=== PATIENT | male | born 1935 | race Caucasian/White ===

== ENCOUNTER 2018-01-22 10:59 | Emergency (ER) | payer MEDICARE, OTHER ==
[2013-03-10 06:00] VITALS: BMI 27.8
[~2018-01-22 10:59] MED LIST: NORCO 10/325 TA1 TA1 PO
== END 2018-01-22 13:48 | disposition home or self-care (01) ==
LOC: D.ER 10:59
DX: M54.30 Sciatica, unspecified side (principal)

== ENCOUNTER 2018-05-20 16:06 | Inpatient (IN) | payer MEDICARE, OTHER ==
[~2018-05-20] VITALS: Ht 177.8 cm; Wt 76.2 kg
--- NOTE | ~2018-05-20 | OP ---
PATIENT NAME: CHACE ADAN MEDICAL RECORD: [id number] :39 LOCATION:D.MS [id number] ADMISSION DATE:05/21/18 SURGEON: JOHNNIE PLUMMER MD DATE OF OPERATION: 05/23/2018 PREOPERATIVE DIAGNOSES: 1. Sigmoid colon mass. 2. Large bowel obstruction secondary to sigmoid colon mass. 3. Atrial fibrillation. 4. Liver mass. POSTOPERATIVE DIAGNOSES: 1. 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 2. Atrial fibrillation. 3. Liver mass, likely metastatic colon cancer. PROCEDURE: Marj's procedure. SURGEON: Johnnie Plummer MD GREEK PROFESSOR: Ivonne Shankar APRN REPORT OF PROCEDURE: The patient's abdomen was prepped and draped in sterile fashion. A cutdown was made in the lower midline of the abdomen. Electrocautery was used to dissect through the subcutaneous tissues and fascia and we entered the abdominal cavity. Once inside, a Gelport was inserted. We used the wound protector and I examined the abdomen digitally and was able to feel the mass, which was adherent to the posterior wall of the abdomen. I did a gentle dissection of the tissues and was able to eventually free this up, but the mass was so adherent that it actually just split the colon in half. The mass encompassed the entire colon circumferentially causing a complete obstruction. The patient had a large amount of stool present proximal to this. The colon was eventually completely freed up and we decided to abort any inclination for a laparoscopic procedure. I went ahead and just extended the lower midline incision up to the inferior aspect of the umbilicus and inserted an Heladio retractor. The colon was transected at the rectosigmoid junction using a 60 blue load SABINO stapler and the mesentery was taken down with sequential clamp and tie technique. The proximal sigmoid colon was then taken down with an electrocautery and upon doing this, there was a large spillage of the contents. This was irrigated out thoroughly until there was good clear return of fluid. The mesentery was taken down with sequential clamp and tie technique and these 2 specimens were sent off for permanent. As we inspected the posterior aspect of the abdomen, we could see there was still tumor present in the retroperitoneal tissues, did gentle dissection of the area to take out any grossly abnormal tissue that was present overlying the patient's inferior vena cava and aorta. Once the mass was completely excised, we inspected the area to assure there was no sign of any active bleeding, which we did not see. We then did further digital examination of the abdomen and can feel there was a large mass in the left lobe of the liver. This was seen on the preoperative CT scan and felt to be metastatic disease. I did not feel any other masses or lesions throughout the abdomen. A Prolene suture was placed on the rectal stump. We then closed up the distal descending colon with a 3-0 silk. An opening was then made in the left lower quadrant just lateral to the umbilicus through the subcutaneous tissues and fascia. Care was taken not to aggravate the muscle and then we eviscerated the distal descending colon through this for OPERATIVE REPORT [id number] CHACE ADAN colostomy. We irrigated out the abdomen one last time. The peritoneum was then closed with a running 2-0 Vicryl. The midline fascia was then closed with a running #1 loop PDS times 2. The skin was then closed with shakira. We then matured the ostomy with multiple interrupted 4-0 Vicryls and dressed it appropriately. COMPLICATIONS: None. CONDITION: Stable. ANESTHESIA: General endotracheal. BLOOD LOSS: 100 mL. TRANSINT:[id number] Voice Confirmation ID: [id number] DOCUMENT ID: [id number] JOHNNIE PLUMMER MD at 2207 CC: [id number] DICTATION DATE: 05/23/18 1608 [place] AND SILVERWARE SALESPERSON: 05/23/18 1623 ADM IN [facility] [address] [place] [address]
[2018-05-20 19:29] LABS: BASOPHILS 0.2 % (0-2); EOSINOPHILS 2.6 % (0-7); HEMATOCRIT 37.5 % (42.0-54.0); HEMOGLOBIN 12.5 g/dL (13.5-17.5); IMMATURE GRANULOCYTES 0.4 % (0-5); LYMPHOCYTES 17.3 % (15-50); MCH 29.9 pg (26.0-34.0); MCHC 33.3 g/dL (31.0-37.0); MCV 89.7 fL (80.0-100.0); MEAN PLATELET VOLUME 9.1 fL (7.4-10.4); NEUTROPHILS 69.5 % (40-80); RBC 4.18 10x6/uL (4.20-6.10); RDW 13.3 % (11.5-14.5); WBC 9.8 10x3/uL (4.8-10.8)
[2018-05-20 19:40] LABS: PLATELET COUNT 359 10x3/uL (130-400)
[2018-05-20 20:11] VITALS: BP 134/65
[2018-05-20 20:12] LABS: ANION GAP 12.4 mmol/L (8-16); BILIRUBIN - TOTAL 0.43 mg/dL (0.2-1.3); CALCIUM 8.7 mg/dL (8.5-10.1); CARBON DIOXIDE 27.7 mmol/L (21.0-32.0); CREATININE - SERUM 1.2 mg/dL (0.6-1.3); POTASSIUM - SERUM 4.1 mmol/L (3.5-5.1); PROTEIN - SERUM 6.9 g/dL (6.4-8.2)
[2018-05-21 03:15] VITALS: BP 129/55; BMI 24.1
[2018-05-21 04:10] VITALS: BP 136/66
[2018-05-21 08:28] VITALS: BP 142/80
[2018-05-21 08:34] LABS: INR 1.01 (0.85-1.17); PROTIME 12.9 SECONDS (11.6-15.0)
[2018-05-21 11:10] VITALS: BP 131/76
[2018-05-21 15:53] VITALS: BP 146/77
[2018-05-21 16:54] LABS: APPEARANCE CLEAR (CLEAR); BILIRUBIN NEGATIVE (NEGATIVE); COLOR YELLOW (YELLOW); GLUCOSE NEGATIVE (NEGATIVE); KETONE MODERATE mg/dL (NEGATIVE); NITRITE NEGATIVE (NEGATIVE); PROTEIN NEGATIVE (NEGATIVE); SPECIFIC GRAVITY 1.015 (1.005-1.020); UROBILINOGEN NORMAL (NORMAL)
[2018-05-21 22:11] VITALS: BP 130/79
[2018-05-22 04:12] VITALS: BP 122/52
[2018-05-22 05:56] LABS: BASOPHILS 0.3 % (0-2); EOSINOPHILS 1.6 % (0-7); HEMATOCRIT 38.7 % (42.0-54.0); HEMOGLOBIN 12.8 g/dL (13.5-17.5); IMMATURE GRANULOCYTES 0.4 % (0-5); LYMPHOCYTES 12.8 % (15-50); MCH 29.4 pg (26.0-34.0); MCHC 33.1 g/dL (31.0-37.0); MEAN PLATELET VOLUME 9.6 fL (7.4-10.4); MONOCYTES 10.2 % (2-11); NEUTROPHILS 74.7 % (40-80); PLATELET COUNT 372 10x3/uL (130-400); RBC 4.35 10x6/uL (4.20-6.10); RDW 13.5 % (11.5-14.5); WBC 9.2 10x3/uL (4.8-10.8)
[2018-05-22 06:30] LABS: ALBUMIN 2.8 g/dL (3.4-5.0); ALKALINE PHOSPHATASE 79 U/L (46-116); ALT (SGPT) 20 U/L (10-68); BILIRUBIN - TOTAL 0.54 mg/dL (0.2-1.3); CALC OSMOLALITY 275 mosm/kg (275-300); CALCIUM 8.1 mg/dL (8.5-10.1); CARBON DIOXIDE 26.9 mmol/L (21.0-32.0); CHLORIDE - SERUM 101 mmol/L (98-107); GLUCOSE 119 mg/dL (74-106); POTASSIUM - SERUM 3.9 mmol/L (3.5-5.1); PROTEIN - SERUM 5.9 g/dL (6.4-8.2); SODIUM 138 mmol/L (136-145); UREA NITROGEN 11 mg/dL (7-18); eGFR NON AFRICAN AMERICAN 76 mL/min (90-120)
[2018-05-22 09:23] VITALS: BP 149/79
[2018-05-22 12:25] VITALS: BP 138/82
[2018-05-22 15:31] VITALS: BMI 24.1
[2018-05-22 17:02] VITALS: BP 157/77
[2018-05-22 21:08] VITALS: BP 150/90
[2018-05-23] VITALS (10 sets, daily range): BP systolic 98–167; BP diastolic 63–79; Ht 177.8 cm; Wt 76.2 kg
[2018-05-23 04:13] LABS: HEMATOCRIT 38.8 % (42.0-54.0); HEMOGLOBIN 13.1 g/dL (13.5-17.5); LYMPHOCYTES 15.2 % (15-50); MCH 29.4 pg (26.0-34.0); MCHC 33.8 g/dL (31.0-37.0); MCV 87.2 fL (80.0-100.0); MEAN PLATELET VOLUME 8.5 fL (7.4-10.4); NEUTROPHILS 74.9 % (40-80); PLATELET COUNT 382 10x3/uL (130-400); RBC 4.45 10x6/uL (4.20-6.10); RDW 13.7 % (11.5-14.5); WBC 7.7 10x3/uL (4.8-10.8)
[2018-05-23 04:26] LABS: ALBUMIN 2.7 g/dL (3.4-5.0); ALKALINE PHOSPHATASE 75 U/L (46-116); ALT (SGPT) 21 U/L (10-68); BILIRUBIN - TOTAL 0.49 mg/dL (0.2-1.3); CALC OSMOLALITY 270 mosm/kg (275-300); CALCIUM 8.3 mg/dL (8.5-10.1); CARBON DIOXIDE 26.5 mmol/L (21.0-32.0); CHLORIDE - SERUM 99 mmol/L (98-107); GLUCOSE 129 mg/dL (74-106); POTASSIUM - SERUM 3.4 mmol/L (3.5-5.1); PROTEIN - SERUM 6.7 g/dL (6.4-8.2); SODIUM 134 mmol/L (136-145); eGFR NON AFRICAN AMERICAN 76 mL/min (90-120)
[2018-05-23 04:29] LABS: UREA NITROGEN 14 mg/dL (7-18)
[2018-05-24 01:00] VITALS: BP 102/66
[2018-05-24 05:04] VITALS: BP 131/88
[2018-05-24 06:21] LABS: BASOPHILS 0 % (0-2); EOSINOPHILS 0 % (0-7); HEMOGLOBIN 11.9 g/dL (13.5-17.5); IMMATURE GRANULOCYTES 0.4 % (0-5); LYMPHOCYTES 5.4 % (15-50); MCH 29.3 pg (26.0-34.0); MCHC 33.1 g/dL (31.0-37.0); MCV 88.7 fL (80.0-100.0); MEAN PLATELET VOLUME 9.4 fL (7.4-10.4); MONOCYTES 5.4 % (2-11); NEUTROPHILS 88.8 % (40-80); PLATELET COUNT 390 10x3/uL (130-400); RBC 4.06 10x6/uL (4.20-6.10); RDW 13.8 % (11.5-14.5)
[2018-05-24 06:22] LABS: WBC 18.5 10x3/uL (4.8-10.8)
[2018-05-24 06:28] LABS: ALBUMIN 2.3 g/dL (3.4-5.0); ANION GAP 11.2 mmol/L (8-16); BILIRUBIN - TOTAL 0.44 mg/dL (0.2-1.3); CALCIUM 8.1 mg/dL (8.5-10.1); CARBON DIOXIDE 26.8 mmol/L (21.0-32.0); CREATININE - SERUM 1.2 mg/dL (0.6-1.3); PROTEIN - SERUM 5.6 g/dL (6.4-8.2)
[2018-05-24 09:30] VITALS: BP 120/61
[2018-05-24 20:00] VITALS: BP 120/63
[2018-05-25 03:58] VITALS: BP 107/53
[2018-05-25 06:08] LABS: BASOPHILS 0.1 % (0-2); EOSINOPHILS 0.9 % (0-7); HEMATOCRIT 30.6 % (42.0-54.0); HEMOGLOBIN 10.1 g/dL (13.5-17.5); IMMATURE GRANULOCYTES 0.5 % (0-5); LYMPHOCYTES 8.3 % (15-50); MCH 29.4 pg (26.0-34.0); MEAN PLATELET VOLUME 9.2 fL (7.4-10.4); MONOCYTES 5.8 % (2-11); NEUTROPHILS 84.4 % (40-80); PLATELET COUNT 328 10x3/uL (130-400); RBC 3.44 10x6/uL (4.20-6.10); RDW 14.1 % (11.5-14.5); WBC 15.3 10x3/uL (4.8-10.8)
[2018-05-25 06:31] LABS: ALKALINE PHOSPHATASE 48 U/L (46-116); ALT (SGPT) 17 U/L (10-68); BILIRUBIN - TOTAL 0.39 mg/dL (0.2-1.3); CALC OSMOLALITY 271 mosm/kg (275-300); CARBON DIOXIDE 26.7 mmol/L (21.0-32.0); CHLORIDE - SERUM 102 mmol/L (98-107); GLUCOSE 101 mg/dL (74-106); POTASSIUM - SERUM 3.7 mmol/L (3.5-5.1); PROTEIN - SERUM 5.2 g/dL (6.4-8.2); SODIUM 135 mmol/L (136-145); UREA NITROGEN 19 mg/dL (7-18); eGFR NON AFRICAN AMERICAN 76 mL/min (90-120)
[2018-05-25 10:08] VITALS: BP 106/46
[2018-05-25 20:00] VITALS: BP 122/75
[2018-05-26 04:41] VITALS: BP 116/62
[2018-05-26 05:21] LABS: BASOPHILS 0.1 % (0-2); EOSINOPHILS 2.1 % (0-7); HEMATOCRIT 30.9 % (42.0-54.0); HEMOGLOBIN 10.1 g/dL (13.5-17.5); IMMATURE GRANULOCYTES 0.4 % (0-5); LYMPHOCYTES 7.6 % (15-50); MCH 29.3 pg (26.0-34.0); MCHC 32.7 g/dL (31.0-37.0); MCV 89.6 fL (80.0-100.0); MEAN PLATELET VOLUME 9.2 fL (7.4-10.4); MONOCYTES 4.6 % (2-11); NEUTROPHILS 85.2 % (40-80); PLATELET COUNT 355 10x3/uL (130-400); RBC 3.45 10x6/uL (4.20-6.10); WBC 14.5 10x3/uL (4.8-10.8)
[2018-05-26 05:24] LABS: ALKALINE PHOSPHATASE 58 U/L (46-116); ALT (SGPT) 17 U/L (10-68); BILIRUBIN - TOTAL 0.31 mg/dL (0.2-1.3); CALC OSMOLALITY 273 mosm/kg (275-300); CALCIUM 7.9 mg/dL (8.5-10.1); CARBON DIOXIDE 28.1 mmol/L (21.0-32.0); CHLORIDE - SERUM 101 mmol/L (98-107); CREATININE - SERUM 0.9 mg/dL (0.6-1.3); GLUCOSE 95 mg/dL (74-106); POTASSIUM - SERUM 3.6 mmol/L (3.5-5.1); PROTEIN - SERUM 4.8 g/dL (6.4-8.2); SODIUM 136 mmol/L (136-145); UREA NITROGEN 19 mg/dL (7-18); eGFR NON AFRICAN AMERICAN 86 mL/min (90-120)
[2018-05-26 08:07] VITALS: BP 126/65
[2018-05-26 12:32] VITALS: BP 116/73
[2018-05-26 16:31] VITALS: BP 108/60
[2018-05-26 23:38] VITALS: BP 116/63
[2018-05-27 05:16] VITALS: BP 103/67
[2018-05-27 08:23] VITALS: BP 128/87
[2018-05-27] MEDS ORDERED: HYDROCODONE-APA1 TAB PO (09:02)
[2018-05-27] MEDS ORDERED: LEVAQUIN750 MG PO (09:03)
[2018-05-27] MEDS ORDERED: FLAGYL500 MG PO (09:03)
== END 2018-05-27 12:20 | disposition home health service (06) | DRG 330 ==
LOC: D.ER 16:06 → D.MS 05-21 00:42
PROVIDERS: Family Medicine; Surgery
PROC: 0DTN0ZZ Resection of Sigmoid Colon, Open Approach (ICD-10-PCS; principal; 2018-05-23 11:30)
PROC: 0D1M0Z4 Bypass Descending Colon to Cutaneous, Open Approach (ICD-10-PCS; 2018-05-23 11:30)
DX: C18.7 Malignant neoplasm of sigmoid colon (principal); C78.7 Secondary malignant neoplasm of liver and intrahepatic bile duct; K59.00 Constipation, unspecified; R63.4 Abnormal weight loss; Z87.891 Personal history of nicotine dependence; I48.91 Unspecified atrial fibrillation

== ENCOUNTER 2018-07-22 05:50 | Inpatient (IN) | payer MEDICARE, OTHER ==
[2018-07-21 09:50] LABS: BASOPHILS 0.3 % (0-2); HEMATOCRIT 39.7 % (42.0-54.0); IMMATURE GRANULOCYTES 0.2 % (0-5); MCH 29.9 pg (26.0-34.0); MCHC 32.7 g/dL (31.0-37.0); MCV 91.3 fL (80.0-100.0); MEAN PLATELET VOLUME 9.5 fL (7.4-10.4); MONOCYTES 11.4 % (2-11); NEUTROPHILS 61.1 % (40-80); RBC 4.35 10x6/uL (4.20-6.10); RDW 15.4 % (11.5-14.5); WBC 6.7 10x3/uL (4.8-10.8)
[2018-07-21 09:51] LABS: PLATELET COUNT 195 10x3/uL (130-400)
[2018-07-21 09:57] LABS: CALC OSMOLALITY 276 mosm/kg (275-300); CALCIUM 8.9 mg/dL (8.5-10.1); CARBON DIOXIDE 28.7 mmol/L (21.0-32.0); CHLORIDE - SERUM 103 mmol/L (98-107); GLUCOSE 99 mg/dL (74-106); POTASSIUM - SERUM 4.4 mmol/L (3.5-5.1); SODIUM 138 mmol/L (136-145); UREA NITROGEN 16 mg/dL (7-18); eGFR NON AFRICAN AMERICAN 76 mL/min (90-120)
[2018-07-21 09:58] LABS: APTT 24.6 SECONDS (22.8-39.4); INR 0.91 (0.85-1.17); PROTIME 11.9 SECONDS (11.6-15.0)
[~2018-07-22] VITALS: Ht 175.3 cm; Wt 79.4 kg
--- NOTE | ~2018-07-22 | MORECARE ---
CASE MANAGEMENT DISCHARGE SUMMARY PATIENT: CHACE ADAN ANUPAMA UNIT: [id number] ADM DATE: 07/22/18 AGE: 83 : 37 SEX: M ROOM/BED: D.2217 AUTHOR: ANNEL FRAZIER PHYSICIAN: REFERRING PHYSICIAN: MARTI PLUMMER MD DATE OF SERVICE: 07/23/18 Discharge Plan Patient Name: CHACE ADAN [facility] [facility] 1935 Planned Disposition: Home with Home Health Anticipated Discharge Date: Discharge Date: Expected LOS: Initial Reviewer: [email or web address] Initial Review Date: 07/22/2018 Generated: 07/23/18 3:18 pm Patient Name: CHACE ADAN Page 14638 at 1418 All edits/amendments must be made on the electronic document DICTATION DATE: 07/23/18 1418 WAITER/WAITRESS CAFETERIA: DESMOND 07/23/18 1418 RPT#: [id number] DC DATE: STATUS: ADM IN [facility] [address] [place] [address] END OF REPORT
--- NOTE | ~2018-07-22 | OP ---
PATIENT NAME: CHACE ADAN MEDICAL RECORD: [id number] :39 LOCATION:D.MS [id number] ADMISSION DATE:07/22/18 SURGEON: JOHNNIE PLUMMER MD DATE OF OPERATION: 07/22/2018 PREOPERATIVE DIAGNOSES: 1. Colostomy. 2. Metastatic colon cancer. 3. Colon cancer metastasized to the liver. POSTOPERATIVE DIAGNOSES: 1. Colostomy. 2. Metastatic colon cancer. 3. Colon cancer metastasized to the liver. PROCEDURES: 1. Left subclavian vein port placement. 2. Fluoroscopic interpretation. 3. Hand-assisted laparoscopic colostomy takedown. 4. Jordy-Cut liver biopsy. SURGEON: Johnnie Plummer MD SEMICONDUCTOR LAB TECHNICIAN: Ivonne Shankar APRN REPORT OF OPERATION: The patient's left chest was prepped and draped in sterile fashion. A needle was used to cannulate the left subclavian vein and a guidewire was advanced with ease. Fluoro was used to note that the wire was in good position in the venous system. A skin incision was made on the left superior lateral chest and a subcutaneous pouch was made over the pectoral fascia. The catheter was tunneled between this and the wire exit site. The port was then sutured to the pectoral fascia using interrupted 4-0 Prolenes times 2. The catheter was cut with a beveled tip at 25 cm and then a dilator trocar device was placed over the wire. The wire and dilator were then removed and the catheter tip was advanced through the trocar with ease. Once the trocar was removed, the catheter tip was noted to be in good position in the right atrial superior vena caval junction. The catheter aspirated nonpulsatile dark blood and flushed easily with heparinized saline. The subcutaneous tissues were reapproximated with interrupted 3-0 Vicryl and the skin was closed with running subcutaneous 5-0 Monocryl. We then accessed the port and flushed it one last time before applying a dressing. At this point, the patient's abdomen was prepped and draped in sterile fashion. A skin incision was made in the lower midline. Electrocautery was used to dissect through the subcutaneous tissues and fascia until we entered the abdominal cavity. A Gelport was inserted with a 5-mm trocar within it. Through this, we were able to insufflate the abdomen and under direct visualization placed a 5-mm trocar in the right lateral abdomen and another in the right lateral inferior abdomen. The patient had some adhesions present in the pelvis. Most of these were just teased down carefully with blunt dissection. The patient did have some dense adhesions of the small bowel to the pelvic wall and these were taken down with sharp dissection. A total of about 15-20 minutes was used on lysis of adhesions. Once we had the adhesions taken down, we could see the rectal stump. There were some mild adhesions there and these were taken down with blunt dissection. At this point, the rectal stump was freely mobile. The Prolene suture, which had been placed at the previous surgery, was easily visualized. We did not see any evidence of any metastatic OPERATIVE REPORT [id number] CHACE ADAN disease in the patient's previous incision/wound bed. At this point, we took down the indwelling colostomy by excising the surrounding tissue using electrocautery. We continued this dissection down all the way into the abdominal cavity until we were able to finally eviscerate the piece of bowel into the abdomen. The distal aspect of the colostomy was transected and sent off for permanent specimen. The bowel was sized and eventually a 29 EEA anvil was inserted. A 2-0 Prolene was used to make a pursestring around the distal descending colon and this was tied down tightly around the anvil. At this point, the multiple dilators were placed through the anus and rectum and finally followed by the 29 EEA stapler. An end-to-end anastomosis was performed under direct visualization. At the conclusion of this, there were noted to be 2 complete rings of tissue present in the stapler and the staple line was tested under water by instilling air through the rectum. There was no sign of a leak at any point. We then oversewed the staple line using lemberted 3-0 silks. The pelvis was then irrigated out thoroughly with normal saline and care was taken to assure there was no sign of any active surgical bleeding. At this point, the fascia of the ostomy site was closed using multiple interrupted 0 Prolenes. We then reinsufflated the abdomen and inspected the liver. The patient had a large mass present on the left lobe of the liver. A small incision was made in the epigastrium and an 18-gauge Jordy-Cut liver biopsy tool was used to get 3 good course of tissue. There was no sign of any bleeding at the conclusion of this. The patient's ports and insufflation were then removed. The midline fascia was closed with running #1 loop PDS times 2. The skin was then closed with shakira. The ostomy site skin was closed with 2-0 Vicryl in a pursestring fashion. The wounds were then dressed appropriately. COMPLICATIONS: None. CONDITION: Stable. ANESTHESIA: General endotracheal. BLOOD LOSS: 200 mL. TRANSINT:[id number] Voice Confirmation ID: [id number] DOCUMENT ID: [id number] JOHNNIE PLUMMER MD at 1219 CC: ULI MORATAYA MD and SHANKAR UP MD [id number] DICTATION DATE: 07/22/18 1109 FLOOR WORKER TRANSFER BAY: 07/22/18 1130 DIS IN 07/25/18 [id number] [place] [address]
--- NOTE | ~2018-07-22 | MORECARE ---
CASE MANAGEMENT DISCHARGE SUMMARY PATIENT: CHACE ADAN ANUPAMA UNIT: [id number] ADM DATE: 07/22/18 AGE: 83 : 37 SEX: M ROOM/BED: D.2217 AUTHOR: FREDDIE,DOC PHYSICIAN: REFERRING PHYSICIAN: MARTI PLUMMER MD DATE OF SERVICE: 07/28/18 Discharge Plan Patient Name: CHACE ADAN Facility: [facility]:[place] : 1935 Planned Disposition: Home with Home Health Anticipated Discharge Date: Discharge Date: 07/25/2018 Expected LOS: 0 Initial Reviewer: [email or web address] Initial Review Date: 07/22/2018 Generated: 07/28/18 10:49 am Comments DCP- Discharge Planning Updated by [email or web address]: Nery Henning on 07/25/18 9:[address] PATIENT DISCHARGING HOME TODAY, IMM SERVED. PATIENT WILL BE GOING HOME WITH [facility]. SPOKE WITH DARYL. CM WILL CONTINUE TO FOLLOW AND ASSIST WITH DC PLANNING NEEDED DCP- Discharge Planning Updated by [email or web address]: Nery Henning on 07/23/18 1:[address] Patient Name: CHACE ADAN Admission Status: Elective Accout number: [id number] Admission Date: 07-22-2018 : 1935 Admission Diagnosis: Attending: MARTI PLUMMER Current LOS: 1 Anticipated DC Date: Planned Disposition: Home with Home Health Primary Insurance: MEDICARE A & B Discharge Planning Comments: CM met with patient to assess discharge planning needs. Patient lives independently at home with his and plans to return there at discharge. He does not use any DME and is current with [facility] and would like to have them when he is discharged. His home is safe to return and his will be driving him home. CM will continue to follow and assist with DC Planning as needed Joist Setter: Nery Henning DCPIA - Discharge Planning Initial Assessment Updated by [email or web address]: Nery Henning on 07/23/18 2:21 pm * Is the patient Alert and Oriented? Yes * How many steps to enter\exit or inside your home? * PCP [facility] * Pharmacy [facility] * Preadmission Environment Home with Family * ADLs Independent * Equipment None * List name and contact numbers for known caregivers / representatives who currently or will assist patient after discharge: MARY BETH () [phone] * Verbal permission to speak to the caregivers and representatives has been obtained from the patient. Yes * Community resources currently utilized Home Health * Please name any agencies selected above. [facility] * Additional services required to return to the preadmission environment? No * Can the patient safely return to the preadmission environment? Yes * Has this patient been hospitalized within the prior 30 days at any hospital? No Coverage Notice Reviewer: [email or web address] Aide Henning Notice Issued Date-Time: 07/25/2018 10:30 Notice Type: IM Discharge Notice Notice Delivered To: Patient Relationship to Patient: Disability Representative Name: Delivery Method: HAND - Hand Delivered Usha Days: Prior Verbal Notification: Recipient Understood Notice: Yes Recipient Signature: Yes Med Rec Note Co-signed by Attending: Coverage Notice Comment: Last DP export: 07/25/18 9:52 a Patient Name: CHACE ADAN Page 98559 at 0949 All edits/amendments must be made on the electronic document DICTATION DATE: 07/28/18948 GEAR REPAIR SUPERVISOR: DESMOND 07/28/18948 RPT#: [id number] DC DATE:07/25/18 STATUS: DIS IN [facility] [address] [place] [address] END OF REPORT
--- NOTE | ~2018-07-22 | MORECARE ---
CASE MANAGEMENT DISCHARGE SUMMARY PATIENT: CHACE ADAN ANUPAMA UNIT: [id number] ADM DATE: 07/22/18 AGE: 83 : 37 SEX: M ROOM/BED: D.2217 AUTHOR: FREDDIE,DOC PHYSICIAN: REFERRING PHYSICIAN: MARTI PLUMMER MD DATE OF SERVICE: 07/23/18 Discharge Plan Patient Name: CHACE ADAN Facility: [facility]:[place] : 1935 Planned Disposition: Home with Home Health Anticipated Discharge Date: Discharge Date: Expected LOS: Initial Reviewer: [email or web address] Initial Review Date: 07/22/2018 Generated: 07/23/18 3:26 pm Comments DCP- Discharge Planning Updated by [email or web address]: Nery Henning on 07/23/18 1:[address] Patient Name: CHACE ADAN Admission Status: Elective Accout number: [id number] Admission Date: 07-22-2018 : 1935 Admission Diagnosis: Attending: MARTI PLUMMER Current LOS: 1 Anticipated DC Date: Planned Disposition: Home with Home Health Primary Insurance: MEDICARE A & B Discharge Planning Comments: CM met with patient to assess discharge planning needs. Patient lives independently at home with his and plans to return there at discharge. He does not use any DME and is current with [facility] and would like to have them when he is discharged. His home is safe to return and his will be driving him home. CM will continue to follow and assist with DC Planning as needed Spanish Tutor: Nery Henning DCPIA - Discharge Planning Initial Assessment Updated by [email or web address]: Nery Henning on 07/23/18 2:21 pm * Is the patient Alert and Oriented? Yes * How many steps to enter\exit or inside your home? * PCP [facility] * Pharmacy [facility] * Preadmission Environment Home with Family * ADLs Independent * Equipment None * List name and contact numbers for known caregivers / representatives who currently or will assist patient after discharge: MARY BETH () [phone] * Verbal permission to speak to the caregivers and representatives has been obtained from the patient. Yes * Community resources currently utilized Home Health * Please name any agencies selected above. [facility] * Additional services required to return to the preadmission environment? No * Can the patient safely return to the preadmission environment? Yes * Has this patient been hospitalized within the prior 30 days at any hospital? No Last DP export: 07/23/18 1:18 p Patient Name: CHACE ADAN Page 18930 at 1426 All edits/amendments must be made on the electronic document DICTATION DATE: 07/23/181425 PRESCHOOL SUBSTITUTE TEACHER: DESMOND 07/23/181425 RPT#: [id number] DC DATE: STATUS: ADM IN [facility] [address] [place] [address] END OF REPORT
--- NOTE | ~2018-07-22 | MORECARE ---
CASE MANAGEMENT DISCHARGE SUMMARY PATIENT: CHACE ADAN ANUPAMA UNIT: [id number] ADM DATE: 07/22/18 AGE: 83 : 37 SEX: M ROOM/BED: D.2217 AUTHOR: FREDDIE,DOC PHYSICIAN: REFERRING PHYSICIAN: MARTI PLUMMER MD DATE OF SERVICE: 07/25/18 Discharge Plan Patient Name: CHACE ADAN Facility: [facility]:[place] : 1935 Planned Disposition: Home with Home Health Anticipated Discharge Date: Discharge Date: Expected LOS: Initial Reviewer: [email or web address] Initial Review Date: 07/22/2018 Generated: 07/25/18 11:37 am Comments DCP- Discharge Planning Updated by [email or web address]: Nery Henning on 07/23/18 1:[address] Patient Name: CHACE ADAN Admission Status: Elective Accout number: [id number] Admission Date: 07-22-2018 : 1935 Admission Diagnosis: Attending: MARTI PLUMMER Current LOS: 1 Anticipated DC Date: Planned Disposition: Home with Home Health Primary Insurance: MEDICARE A & B Discharge Planning Comments: CM met with patient to assess discharge planning needs. Patient lives independently at home with his and plans to return there at discharge. He does not use any DME and is current with [facility] and would like to have them when he is discharged. His home is safe to return and his will be driving him home. CM will continue to follow and assist with DC Planning as needed Farm Loan Inspector: Nery Henning DCPIA - Discharge Planning Initial Assessment Updated by [email or web address]: Nery Henning on 07/23/18 2:21 pm * Is the patient Alert and Oriented? Yes * How many steps to enter\exit or inside your home? * PCP [facility] * Pharmacy [facility] * Preadmission Environment Home with Family * ADLs Independent * Equipment None * List name and contact numbers for known caregivers / representatives who currently or will assist patient after discharge: MARY BETH () [phone] * Verbal permission to speak to the caregivers and representatives has been obtained from the patient. Yes * Community resources currently utilized Home Health * Please name any agencies selected above. [facility] * Additional services required to return to the preadmission environment? No * Can the patient safely return to the preadmission environment? Yes * Has this patient been hospitalized within the prior 30 days at any hospital? No External Providers External Provider: [facility] Next Contact Date: Service Request Date: Service Type: Resolution: Reviewer: Comments: Last DP export: 07/23/18 1:26 p Patient Name: CHACE ADAN Page 64046 at 1037 All edits/amendments must be made on the electronic document DICTATION DATE: 07/25/18 1036 SOLAR PV INSTALLER: DESMOND 07/25/18 1036 RPT#: [id number] DC DATE: STATUS: ADM IN [facility] [address] [place] [address] END OF REPORT
--- NOTE | ~2018-07-22 | MORECARE ---
CASE MANAGEMENT DISCHARGE SUMMARY PATIENT: CHACE ADAN ANUPAMA UNIT: [id number] ADM DATE: 07/22/18 AGE: 83 : 37 SEX: M ROOM/BED: D.2217 AUTHOR: FREDDIE,DOC PHYSICIAN: REFERRING PHYSICIAN: MARTI PLUMMER MD DATE OF SERVICE: 07/25/18 Discharge Plan Patient Name: CHACE ADAN Facility: [facility]:[place] : 1935 Planned Disposition: Home with Home Health Anticipated Discharge Date: Discharge Date: Expected LOS: Initial Reviewer: [email or web address] Initial Review Date: 07/22/2018 Generated: 07/25/18 11:52 am Comments DCP- Discharge Planning Updated by [email or web address]: Nery Henning on 07/25/18 9:[address] PATIENT DISCHARGING HOME TODAY, IMM SERVED. PATIENT WILL BE GOING HOME WITH [facility]. SPOKE WITH DARYL. CM WILL CONTINUE TO FOLLOW AND ASSIST WITH DC PLANNING NEEDED DCP- Discharge Planning Updated by [email or web address]: Nery Henning on 07/23/18 1:[address] Patient Name: CHACE ADAN Admission Status: Elective Accout number: [id number] Admission Date: 07-22-2018 : 1935 Admission Diagnosis: Attending: MARTI PLUMMER Current LOS: 1 Anticipated DC Date: Planned Disposition: Home with Home Health Primary Insurance: MEDICARE A & B Discharge Planning Comments: CM met with patient to assess discharge planning needs. Patient lives independently at home with his and plans to return there at discharge. He does not use any DME and is current with [facility] and would like to have them when he is discharged. His home is safe to return and his will be driving him home. CM will continue to follow and assist with DC Planning as needed Car Barn Laborer: Nery Henning DCPIA - Discharge Planning Initial Assessment Updated by [email or web address]: Nery Henning on 07/23/18 2:21 pm * Is the patient Alert and Oriented? Yes * How many steps to enter\exit or inside your home? * PCP [facility] * Pharmacy [facility] * Preadmission Environment Home with Family * ADLs Independent * Equipment None * List name and contact numbers for known caregivers / representatives who currently or will assist patient after discharge: MARY BETH () [phone] * Verbal permission to speak to the caregivers and representatives has been obtained from the patient. Yes * Community resources currently utilized Home Health * Please name any agencies selected above. [facility] * Additional services required to return to the preadmission environment? No * Can the patient safely return to the preadmission environment? Yes * Has this patient been hospitalized within the prior 30 days at any hospital? No Coverage Notice Reviewer: [email or web address] Aide Henning Notice Issued Date-Time: 07/25/2018 10:30 Notice Type: IM Discharge Notice Notice Delivered To: Patient Relationship to Patient: Galvanizer Zinc Name: Delivery Method: HAND - Hand Delivered Usha Days: Prior Verbal Notification: Recipient Understood Notice: Yes Recipient Signature: Yes Med Rec Note Co-signed by Attending: Coverage Notice Comment: Last DP export: 07/25/18 9:37 a Patient Name: CHACE ADAN Page 65436 at 1052 All edits/amendments must be made on the electronic document DICTATION DATE: 07/25/18 1051 4TH GRADE TEACHER: DESMOND 07/25/18 1051 RPT#: [id number] DC DATE: STATUS: ADM IN [facility] [address] [place] [address] END OF REPORT
[~2018-07-22 05:50] MED LIST changes: +FLAGYL500 MG PO; +HYDROCODONE-APA1 TAB PO; +LEVAQUIN750 MG PO; +OCCUVITE PO
[2018-07-22 06:19] VITALS: BP 141/71
[2018-07-22 14:30] VITALS: BP 149/72
[2018-07-22 14:48] VITALS: BP 149/72; BMI 25.9
[2018-07-22 15:46] VITALS: BP 140/78
[2018-07-22 20:00] VITALS: BP 115/64
[2018-07-23] VITALS: BP 123/68
[2018-07-23 04:00] VITALS: BP 134/73
[2018-07-23 05:57] LABS: BASOPHILS 0.1 % (0-2); EOSINOPHILS 0.3 % (0-7); HEMATOCRIT 38.7 % (42.0-54.0); HEMOGLOBIN 12.5 g/dL (13.5-17.5); IMMATURE GRANULOCYTES 0.2 % (0-5); MCH 29.2 pg (26.0-34.0); MCHC 32.3 g/dL (31.0-37.0); MCV 90.4 fL (80.0-100.0); MONOCYTES 10.5 % (2-11); NEUTROPHILS 78.9 % (40-80); PLATELET COUNT 193 10x3/uL (130-400); RBC 4.28 10x6/uL (4.20-6.10); RDW 15.3 % (11.5-14.5)
[2018-07-23 06:00] LABS: WBC 10.4 10x3/uL (4.8-10.8)
[2018-07-23 06:15] LABS: CALC OSMOLALITY 271 mosm/kg (275-300); CALCIUM 8.2 mg/dL (8.5-10.1); CARBON DIOXIDE 26.5 mmol/L (21.0-32.0); CHLORIDE - SERUM 103 mmol/L (98-107); CREATININE - SERUM 0.9 mg/dL (0.6-1.3); GLUCOSE 112 mg/dL (74-106); POTASSIUM - SERUM 3.9 mmol/L (3.5-5.1); SODIUM 136 mmol/L (136-145); eGFR NON AFRICAN AMERICAN 86 mL/min (90-120)
[2018-07-23 06:19] LABS: UREA NITROGEN 10 mg/dL (7-18)
[2018-07-23 09:06] VITALS: BP 145/78
[2018-07-23 13:14] VITALS: BP 118/58
[2018-07-23 13:49] VITALS: Ht 175.3 cm; Wt 79.4 kg
[2018-07-23 21:32] VITALS: BP 130/58
[2018-07-24 04:57] LABS: BASOPHILS 0.1 % (0-2); EOSINOPHILS 2.6 % (0-7); HEMATOCRIT 32.1 % (42.0-54.0); HEMOGLOBIN 10.6 g/dL (13.5-17.5); IMMATURE GRANULOCYTES 0.3 % (0-5); LYMPHOCYTES 16.4 % (15-50); MCH 30.4 pg (26.0-34.0); MEAN PLATELET VOLUME 9.9 fL (7.4-10.4); MONOCYTES 12.8 % (2-11); NEUTROPHILS 67.8 % (40-80); PLATELET COUNT 170 10x3/uL (130-400); RBC 3.49 10x6/uL (4.20-6.10); RDW 15.7 % (11.5-14.5); WBC 7.6 10x3/uL (4.8-10.8)
[2018-07-24 05:08] LABS: CALC OSMOLALITY 276 mosm/kg (275-300); CALCIUM 7.8 mg/dL (8.5-10.1); CHLORIDE - SERUM 104 mmol/L (98-107); CREATININE - SERUM 0.9 mg/dL (0.6-1.3); GLUCOSE 79 mg/dL (74-106); POTASSIUM - SERUM 3.8 mmol/L (3.5-5.1); SODIUM 139 mmol/L (136-145); eGFR NON AFRICAN AMERICAN 86 mL/min (90-120)
[2018-07-24 05:19] VITALS: BP 141/62
[2018-07-24 05:24] LABS: UREA NITROGEN 13 mg/dL (7-18)
[2018-07-24 09:05] VITALS: BP 119/67
[2018-07-24 12:11] VITALS: BP 142/78
[2018-07-24 16:13] VITALS: BP 132/78
[2018-07-24 16:19] VITALS: BP 141/69
[2018-07-24 19:47] VITALS: BP 125/57
[2018-07-25 04:56] VITALS: BP 122/66
[2018-07-25 06:49] LABS: BASOPHILS 0.2 % (0-2); EOSINOPHILS 4.3 % (0-7); HEMATOCRIT 33.1 % (42.0-54.0); HEMOGLOBIN 10.6 g/dL (13.5-17.5); IMMATURE GRANULOCYTES 0.2 % (0-5); LYMPHOCYTES 10.9 % (15-50); MCV 90.4 fL (80.0-100.0); MEAN PLATELET VOLUME 10.4 fL (7.4-10.4); MONOCYTES 10.1 % (2-11); NEUTROPHILS 74.3 % (40-80); PLATELET COUNT 188 10x3/uL (130-400); RBC 3.66 10x6/uL (4.20-6.10); RDW 15.4 % (11.5-14.5); WBC 8.5 10x3/uL (4.8-10.8)
[2018-07-25 07:18] LABS: CALC OSMOLALITY 277 mosm/kg (275-300); CALCIUM 8.6 mg/dL (8.5-10.1); CARBON DIOXIDE 27.2 mmol/L (21.0-32.0); CHLORIDE - SERUM 104 mmol/L (98-107); CREATININE - SERUM 0.8 mg/dL (0.6-1.3); GLUCOSE 90 mg/dL (74-106); POTASSIUM - SERUM 3.6 mmol/L (3.5-5.1); SODIUM 139 mmol/L (136-145); UREA NITROGEN 12 mg/dL (7-18); eGFR NON AFRICAN AMERICAN > 90 mL/min (90-120)
[2018-07-25 08:18] VITALS: BP 150/63
[2018-07-25] MEDS ORDERED: NORCO-10 PO (10:17)
== END 2018-07-25 12:40 | disposition home health service (06) | DRG 333 ==
LOC: D.OPS 05:50 → D.PAN 10:35 → D.OPS 11:00 → D.PAN 11:30 → D.MS 13:30 → D.OPS 13:31 → D.MS 13:32
PROVIDERS: Anesthesiology; Surgery
PROC: 0DBP0ZZ Excision of Rectum, Open Approach (ICD-10-PCS; principal; 2018-07-22 08:00)
PROC: 0FB04ZX Excision of Liver, Percutaneous Endoscopic Approach, Diagnostic (ICD-10-PCS; 2018-07-22 08:00)
DX: Z43.3 Encounter for attention to colostomy (principal); C18.9 Malignant neoplasm of colon, unspecified; C78.7 Secondary malignant neoplasm of liver and intrahepatic bile duct

== ENCOUNTER → 2019-05-11 08:14 | Outpatient (CLI) | payer MEDICARE, OTHER ==
[2018-07-23 13:49] VITALS: BMI 25.8
[~2019-05-11 08:14] MED LIST changes: +NORCO-10 PO
--- NOTE | 2019-05-12 11:10 | EC ---
PATIENT:CHACE ADAN DATE OF SERVICE: 05/11/19 SEX: M MEDICAL RECORD: [id number] DATE OF : 39 LOCATION:[facility] AGE OF PATIENT: 84 ADMISSION DATE: 05/11/19 REFERRING PHYSICIAN: INTERPRETING PHYSICIAN: CHELO CHEW MD ECHOCARDIOGRAM REPORT ECHO CHARGES 4 ECHO COMPLETE Date: 05/11/19 CLINICAL DIAGNOSIS: CHEMOTHERAPY ECHOCARDIOGRAPHIC MEASUREMENTS (adult normal given) AC root (d.<3.7cm) 3.3 cm LV Septum d (<1.2 cm> 0.9 cm Valve Excursion 1.5 cm LV Septum (systole) 1.3 cm Left Atria (s.<4.0cm> 3.7 cm LVPW d(<1.2cm) 1.1 cm RV (d.<2.3cm) 2.4 cm LVPW (sytole) 1.7 cm LV diastole(<5.6CM) 6.1 cm MV E-F(>70mm/sec) cm LV systole 4.3 cm LVOT Diameter 2.2 cm MV exc.(>10mm) cm Est.ejection fraction (50-75%) % DOPPLER: LVIT cm/sec A 57.0 cm/sec E 46.0 cm/sec LA cm/sec RVSP 43.0 mmHg LVOT 66.0 cm/sec AOP1/2T m/s Asc. Ao 137 cm/sec RVOT 57.0 cm/sec RA cm/sec PA 118 cm/sec AV Gradient Peak 7.6 mmHg AV Mean 3.9 mmHg AV Area 1.5 cm MV Gradient Peak 3.3 mmHg MV Mean 0.89 mmHg MV Area cm COMMENTS: Singer Songwriter: Romero PERKINSOE Diesel Powerplant Supervisor: 1 Dr. Chew TAPE# PACS Pericardial Effusion N DATE OF SERVICE: 05/11/2019 PROCEDURE: Echocardiogram. FINDINGS: 1. Left ventricular chamber size is mildly dilated. Left ventricular systolic function is mildly reduced at 45%. 2. Left atrium is within normal limits at 3.7 cm. Right atrium and right ventricular chamber sizes are as well upper limits of normal. 3. Valvular structures have normal structure and motion. ECHOCARDIOGRAM REPORT [id number] CHACE ADAN 4. Doppler interrogation reveals moderate mitral regurgitation, moderate tricuspid regurgitation, no other valvular insufficiency or stenosis. Pulmonary systolic pressure is estimated 43 mmHg. 5. No evidence of pericardial effusion or left ventricular thrombus. TRANSINT:[id number] Voice Confirmation ID: [id number] DOCUMENT ID: [id number] CHELO CHEW MD at 1110 CC: [id number] DICTATION DATE: 05/11/19 1137 PIE BAKERY LABORER: 05/11/19 1149 DEP CLI 05/11/19 [place] [id number] [place] [id number]
== END | disposition home or self-care (01) ==
LOC: D.ECHO 08:14
PROVIDERS: ATTEND Internal Medicine Hematology & Oncology
DX: C18.7 Malignant neoplasm of sigmoid colon (principal); C78.7 Secondary malignant neoplasm of liver and intrahepatic bile duct; Z51.11 Encounter for antineoplastic chemotherapy

== ENCOUNTER 2019-10-16 12:30 | Observation (INO) | payer MEDICARE, OTHER ==
[~2019-10-16] VITALS: Ht 175.3 cm; Wt 77.3 kg
[2019-10-16 13:42] LABS: BASOPHILS 0.1 % (0-2); EOSINOPHILS 1.5 % (0-7); HEMATOCRIT 44.3 % (42.0-54.0); HEMOGLOBIN 14.7 g/dL (13.5-17.5); IMMATURE GRANULOCYTES 0.3 % (0-5); LYMPHOCYTES 16.3 % (15-50); MCH 33.1 pg (26.0-34.0); MCHC 33.2 g/dL (31.0-37.0); MCV 99.8 fL (80.0-100.0); MONOCYTES 10.7 % (2-11); NEUTROPHILS 71.1 % (40-80); PLATELET COUNT 204 10x3/uL (130-400); RBC 4.44 10x6/uL (4.20-6.10); RDW 13.1 % (11.5-14.5); WBC 7.5 10x3/uL (4.8-10.8)
[2019-10-16 13:48] LABS: ANION GAP 11.9 mmol/L (8-16); CALCIUM 8.9 mg/dL (8.5-10.1); CARBON DIOXIDE 31.1 mmol/L (21.0-32.0); CREATININE - SERUM 1.2 mg/dL (0.6-1.3)
[2019-10-16 13:53] LABS: ALBUMIN 3.8 g/dL (3.4-5.0); BILIRUBIN - TOTAL 0.44 mg/dL (0.2-1.3); PROTEIN - SERUM 7.1 g/dL (6.4-8.2)
--- NOTE | 2019-10-16 15:04 | NUR ---
URINE TO LAB
[2019-10-16 15:21] LABS: APPEARANCE CLEAR (CLEAR); COLOR YELLOW (YELLOW); SPECIFIC GRAVITY 1.015 (1.005-1.020)
[2019-10-16 15:22] LABS: BILIRUBIN NEGATIVE (NEGATIVE); GLUCOSE NEGATIVE (NEGATIVE); KETONE NEGATIVE (NEGATIVE); NITRITE NEGATIVE (NEGATIVE); PROTEIN TRACE mg/dL (NEGATIVE); UROBILINOGEN NORMAL (NORMAL)
--- NOTE | 2019-10-16 15:23 | NUR ---
PT NEW ROOM NOT READY YET
--- NOTE | 2019-10-16 16:00 | NUR ---
ALERT AND ORIENTED X4 AND UP AND AMBULATING WITH STEADY GAIT. PATINET COMPLAINS OF LOWER BACK PAIN AND REQUIRES FREQUENT REPOSITIONING PER SELF IV INFUSING TO LEFT HAND AT PRESCRIBED RATE. FENTANYL PATCH INTACT. HRRR AND LUNGS CTA WITH ABDOMEN SOFT WITH BS NOTED. ENCOURAGED TO USE CALL LIGHT FOR ASSIST.
[2019-10-16 16:39] VITALS: BP 134/87; Ht 175.3 cm; Wt 77.3 kg
--- NOTE | 2019-10-16 19:10 | NUR ---
PATIENT RESTING IN BED WITH EYES OPEN. NO ACUTE S/S OF DISTRESS. NO C/O AT THIS TIME. PATIENT HAS L HAND NORMAL SALINE @ 100 ML/HR. IV IS PATENT WITHOUT REDNESS, SWELLING, OR TENDERNESS. PATIENT IS RESTLESS BECUASE OF THE BACK PAIN HE WAS ADMITTED FOR. PATIENT CLAIMS THAT NOTHING HAS BEEN HELPING AND THAT HE JUST WANTED TO BE ABLE TO SLEEP. PATIENT HAS FENTYL PATCH ON L SHOULDER. PATIENT GIVEN ROBAXIL AND RESTORIL BEFORE BED. CALL LIGHT IN PLACE. WILL CONTINUE TO MONITOR.
[2019-10-16 20:00] VITALS: BP 153/87
[2019-10-17] VITALS: BP 127/71
[2019-10-17 04:00] VITALS: BP 132/88
--- NOTE | 2019-10-17 04:21 | NUR ---
PATIENT HAS GOTTEN INCREASINGLY FRUSTRATED THROUGH THE NIGHT. "WHAT'S THE POINT OF THIS. WHAT ARE WE GLEANING. I COULD HAVE JUST STAYED AT HOME AND GOTTEN THE SAME RESULTS." I HAVE GIVEN ROBAXIN. BUT PATIENT HAS REFUSED THE NORCO.
[2019-10-17 05:50] LABS: BASOPHILS 0.3 % (0-2); EOSINOPHILS 3.5 % (0-7); HEMATOCRIT 40.1 % (42.0-54.0); HEMOGLOBIN 13.1 g/dL (13.5-17.5); IMMATURE GRANULOCYTES 0.2 % (0-5); MCH 32.7 pg (26.0-34.0); MCHC 32.7 g/dL (31.0-37.0); MEAN PLATELET VOLUME 9.7 fL (7.4-10.4); MONOCYTES 9.3 % (2-11); NEUTROPHILS 62.7 % (40-80); PLATELET COUNT 179 10x3/uL (130-400); RBC 4.01 10x6/uL (4.20-6.10); RDW 13.1 % (11.5-14.5); WBC 6.5 10x3/uL (4.8-10.8)
[2019-10-17 06:16] LABS: BILIRUBIN - TOTAL 0.36 mg/dL (0.2-1.3); CREATININE - SERUM 1.1 mg/dL (0.6-1.3); PROTEIN - SERUM 5.8 g/dL (6.4-8.2)
--- NOTE | 2019-10-17 06:34 | NUR ---
PATIENT WANTS TO GO AMA, BUT DOESN'T LIKE THE IDEA OF HAVING TO "PAY FOR THINGS THAT DIDN'T WORK." PATIENT ALSO SAID, "THIS WAS A WASTE OF TIME. I COULD HAVE BEEN MISERABLE AT HOME. NOTHING HELPED OVER NIGHT SO WHAT WAS THE POINT OF ALL THIS." I TOLD THE PATIENT THAT THE DOCTOR MIGHT NOT COME SO SEE HIM TODAY BECAUSE IT WAS A SATURDAY AND THAT THE MUSIC SUPERVISOR MIGHT COME BY BUT THERE WAS NO GUARANTEE. CALL LIGHT IN PLACE. WILL CONTINUE TO MONITOR.
--- NOTE | 2019-10-17 08:22 | NUR ---
ALERT AND ORIENTED X4. STATES FEELS BETTER WITH DURAGESIC PATCH AND ROBAXIN FOR LOWER BACK PAIN MANAGEMENT. GOOD ROM OF EXT. X4. HRRR AND LUNGS CTA. IVF INFUSING AT PRESCRIBWED RATE AND ENCOURAGED TO USE CALL LIGHT FOR ASSSIT.
[2019-10-17 08:44] VITALS: BP 130/91
[2019-10-17] MEDS ORDERED: GABAPENTIN100 MG PO (09:31)
[2019-10-17] MEDS ORDERED: ROBAXIN PO (09:32)
[2019-10-17] MEDS ORDERED: MIRALAX17 GM PO (09:32)
[2019-10-17] MEDS ORDERED: Duragesic TRANSDERM (09:32)
--- NOTE | 2019-10-17 12:20 | NUR ---
IV DISCONTINUED AND VERBALIZED UNDERSTANDING OF DISCHARGE INSTRUCTIONS. STABLE AT TIME OF DEPARTURE WITH RX X2 IN HAND FOR DURAGESIC AND ROBAXIN.
== END 2019-10-17 12:20 | disposition home or self-care (01) ==
LOC: D.ER 12:30 → OBSVTIME 13:27 → D.MS 13:27
PROVIDERS: Family Medicine; ADMIT Internal Medicine Nephrology; ATTEND Internal Medicine Nephrology
DX: M48.061 Spinal stenosis, lumbar region without neurogenic claudication (principal); G62.9 Polyneuropathy, unspecified; I50.40 Unspecified combined systolic (congestive) and diastolic (congestive) heart failure; M51.36 Other intervertebral disc degeneration, lumbar region; C18.9 Malignant neoplasm of colon, unspecified; C78.7 Secondary malignant neoplasm of liver and intrahepatic bile duct

== ENCOUNTER 2019-11-05 12:37 | Inpatient (IN) | payer MEDICARE, OTHER ==
[~2019-11-05] VITALS: Ht 175.3 cm; Wt 71.2 kg
--- NOTE | ~2019-11-05 | DS ---
PATIENT:CHACE ADAN :39 MEDICAL RECORD: [id number] DISCHARGE SUMMARY ADMISSION DATE: 11/05/19 DISCHARGE DATE: 11/11/19 DATE OF ADMISSION: 11/05/2019. DATE OF DISCHARGE: 11/11/2019. ADMISSION DIAGNOSES: 1. Recurrent small-bowel obstruction. 2. 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 3. Left hydronephrosis. DISCHARGE DIAGNOSES: 1. Recurrent small-bowel obstruction. 2. 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 3. Left hydronephrosis. 4. Multiple mesenteric mets. SURGERY: Exploratory laparotomy with small bowel resection times 2 and a left ureteral stent placement on 11/06/2019. CONSULTATIONS: Urology with Dr. Ceballos. REPORT OF HOSPITALIZATION: The patient was admitted to the hospital through the ER with findings of a recurrent small-bowel obstruction. The patient has been admitted to the hospital just a couple of weeks prior. This was treated conservatively, but he came back in with similar symptoms and a CT scan showing obstruction with a transition zone near the pelvic inlet. He also had worsening left hydronephrosis with obstruction near the pelvic inlet. Urology was consulted and he was admitted to the hospital where he was set up for surgery the following morning for the laparoscopy with ureteral stent placement. The ureteral stent was eventually placed by Dr. Ceballos at the time of surgery and what was planned as a laparoscopic exploration ended up being an open exploration because the patient had multiple areas of metastatic disease throughout the abdominal cavity causing adhesions and blockages. I eventually had to take out a large section of small bowel that had multiple areas of metastatic disease causing multiple stenoses and obstructions to the bowel. Another small section of bowel was taken towards the terminal ileum with another area of metastatic disease. There was metastatic disease near the old ostomy site and his midline incision and just randomly throughout the abdominal cavity including most of the posterior wall of the abdomen. The patient also had a tight area of disease versus anastomotic stenosis at the sigmoid colon where he had had a previous Marj's procedure and colostomy takedown. The patient was not prepped for a colon resection and I knew that the patient was not interested in having a colostomy, so we just freed up some of these adhesions and left it in place. Postoperatively, the patient actually did fairly well and eventually got back to having bowel function including flatus, but no bowel movements. He was tolerating a diet. His incisions appear to be healing appropriately with no signs of infection. His path report came back and it showed adenocarcinoma consistent with metastatic disease in all the segments that were removed. He was then set up for discharge home at that point on regular diet. DISCHARGE INSTRUCTIONS: Return to clinic or call with any questions or concerns, fevers, chills, nausea, vomiting or worsening abdominal pain. DISCHARGE SUMMARY REPORT [id number] CHACE ADAN ACTIVITIES: No heavy lifting or straining for 6 weeks postoperatively. FOLLOWUP: In clinic with me in 1 week. TRANSINT:[id number] Voice Confirmation ID: [id number] DOCUMENT ID: [id number] MARTI PLUMMER MD CC: [id number] DICTATION DATE: 11/17/19 1355 MEN'S GOLF COACH: 11/18/19 0840 DIS IN 11/11/19 [place] [id number] [place] [address]
[~2019-11-05 12:37] MED LIST changes: +Duragesic TRANSDERM; +GABAPENTIN100 MG PO; +MIRALAX17 GM PO; +PERCOCET 10-321 EAC1 PO; +ROBAXIN PO
[2019-11-05] MEDS ORDERED: OXYCODONE HCL E20 MG PO (16:00)
--- NOTE | 2019-11-05 16:00 | NUR ---
TO ROOM 2217 FROM ER VIA WHEELCHAIR. ORIENTATION TO ROOM WITH PATIENT AND .CALL LIGHT IN REACH
[2019-11-05] MEDS ORDERED: OXYCODONE HCL5 M1 PO (16:02)
[2019-11-05] MEDS ORDERED: VALIUM5 MG PO (16:03)
[2019-11-05 16:22] VITALS: BP 133/91; BMI 23.2
[2019-11-05 17:19] VITALS: BP 133/91
[2019-11-05 17:59] LABS: BASOPHILS 0.2 % (0-2); EOSINOPHILS 0.5 % (0-7); HEMATOCRIT 44.6 % (42.0-54.0); HEMOGLOBIN 14.9 g/dL (13.5-17.5); IMMATURE GRANULOCYTES 0.3 % (0-5); LYMPHOCYTES 11.9 % (15-50); MCH 32.5 pg (26.0-34.0); MCHC 33.4 g/dL (31.0-37.0); MCV 97.4 fL (80.0-100.0); MEAN PLATELET VOLUME 9.8 fL (7.4-10.4); MONOCYTES 9.8 % (2-11); NEUTROPHILS 77.3 % (40-80); PLATELET COUNT 250 10x3/uL (130-400); RBC 4.58 10x6/uL (4.20-6.10); WBC 10.9 10x3/uL (4.8-10.8)
[2019-11-05 18:50] LABS: ALBUMIN 3.7 g/dL (3.4-5.0); ANION GAP 11.1 mmol/L (8-16); BILIRUBIN - TOTAL 0.45 mg/dL (0.2-1.3); CALCIUM 8.9 mg/dL (8.5-10.1); CARBON DIOXIDE 33.1 mmol/L (21.0-32.0); CREATININE - SERUM 1.4 mg/dL (0.6-1.3); POTASSIUM - SERUM 4.2 mmol/L (3.5-5.1); PROTEIN - SERUM 6.7 g/dL (6.4-8.2)
[2019-11-05 20:00] VITALS: BP 116/86
--- NOTE | 2019-11-05 22:00 | NUR ---
A&O X 4 IN ROOM. AMBULATES INDEPENDENTLY. CONSENTS SIGNED. REPORTS PROCESS SUPERVISOR ONLY CONTROLS SOME PAIN, BUT DENIES NEED FOR BOLUS.
[2019-11-06] VITALS (7 sets, daily range): BP systolic 127–191; BP diastolic 53–85; Ht 175.3 cm; Wt 71.2 kg
--- NOTE | 2019-11-06 08:02 | NUR ---
ALERT AND ORIENTED. LUNGS CLEAR BILATERALLY. HEART SOUNDS S1 AND S2 HEARD IN ALL LEIVA. BOWEL SOUNDS HYPOACTIVE X 4. SKIN INTACT WITHOUT REDNESS. IV TO RFA PATENT WITHOUT REDNESS. PREOP MEDICATIONS GIVEN PER ORDER. DENIES NEEDS. AT BEDSIDE. BED LOW. CALL [place] AND PERSONAL ITEMS IN REACH. WILL CONTINUE TO MONITOR.
--- NOTE | 2019-11-06 13:00 | NUR ---
PATIENT STILL IN SURGERY.
--- NOTE | 2019-11-06 14:32 | NUR ---
PATIENT RETURNED FROM PROCEDURE. POST OP VITALS STABLE. DRAINAGE MARKED ON ABD INCISION. HOOKED BACK TO EDUCATION DEAN. ICE CHIPS AND MOUTH SWABS GIVEN. WILL CONTINUE TO MONITOR.
--- NOTE | 2019-11-06 15:00 | OP ---
PATIENT NAME: CHACE ADAN MEDICAL RECORD: [id number] :37 LOCATION:[id number] ADMISSION DATE:11/05/19 SURGEON: GEO NOONAN MD DATE OF OPERATION: 11/05/2019 SURGEON: Geo Noonan MD ANESTHESIA: General anesthesia by Marva Ha CRNA. DIAGNOSES: Metastatic sigmoid colon cancer, small-bowel obstruction, left hydronephrosis. PROCEDURE: Cystoscopy, left retrograde pyelogram, left ureteral stent insertion 6-Sudanese x 26 cm without string attached. FINDINGS: On cystoscopy, nonobstructive prostate, no bladder tumors. Single ureteral orifices bilaterally. Retrograde pyelogram shows a tortuous ureter with almost complete occlusion at the L5 vertebral level. There is severe hydroureteronephrosis proximal to the obstruction site. ESTIMATED BLOOD LOSS: None. CLINICAL HISTORY: This is an 84-year-old male, who initially presented with bowel obstruction due to a sigmoid colon cancer. This was resected, but he was found to have metastatic lymph nodes and now he has known metastatic nodules in the liver. He has been treated with chemotherapy. He has had recurrent episodes of small-bowel obstruction for the past 2 weeks. He comes in to the hospital again with severe abdominal pain. CT scan shows a small-bowel obstruction. It also shows left hydroureteronephrosis, which is new. Dr. Trevino is going to perform an exploratory laparoscopy this morning. At the same time, I will be inserting a left ureteral stent to relieve the obstruction. The patient is already under general anesthesia and he has been given his preoperative antibiotics. DESCRIPTION OF PROCEDURE: He was placed into lithotomy position and prepped and draped. Procurement Coordinator fluoroscopy revealed no radiodense stones. Going into the bladder, cystoscopic findings are as outlined above. I inserted an open-ended 5-Sudanese ureteral catheter. A retrograde pyelogram was obtained. There was virtually complete occlusion of the ureter at the L5 level. The very faint amount of contrast managed to get past showed severe hydroureteronephrosis. I then inserted a Sensor wire and at the level of the obstruction. The sensor wire could not pass. I then tried a curved Glidewire and this only manage to deflect itself back 180 degrees at the site of obstruction. Finally, I tried a straight Glidewire and this managed to get through the obstruction site. Over the wire, we inserted a 6-Sudanese x 26 cm ureteral stent. Once this was in correct position, the wire was withdrawn entirely. The distal end of the stent was pushed into the bladder using a pusher. Dr. Trevino will proceed with his surgery. TRANSINT:[id number] Voice Confirmation ID: [id number] DOCUMENT ID: [id number] OPERATIVE REPORT [id number] CHACE ADAN, GEO Lowe MD at 1500 CC: [id number] DICTATION DATE: 11/06/1955 MANAGER SHIP: 11/06/19 1456 ADM IN [facility] [address] [place] [address]
--- NOTE | 2019-11-06 17:06 | NUR ---
SPOKE WITH DR RODRIGUEZ WHO STATES OK TO GIVE PATIENT ONE TIME DOSE ATIVAN 1MG IV NOW. PATIENT VERY UPSET AND RESTLESS.
--- NOTE | 2019-11-07 03:00 | NUR ---
PT WOKE UP CONFUSED. GOT OUT OF BED TO GO TO BATHROOM. PULLED OUT RIGHT FOREARM IV, CATHETER INTACT AND DISCONNECTED NGT. PUT PT BACK IN BED AND CHANGED GOWN. FLUSHED LEF FOREARM IV, IS PATENT. RESUMED IV FLUIDS AND MEDICAL EDITOR. NO OTHER NEEDS. WILL CONTINUE TO MONITOR.
[2019-11-07 04:00] VITALS: BP 135/79
--- NOTE | 2019-11-07 04:00 | NUR ---
PT CONFUSED. TRIED TO GET UP AGAIN TO "PEE" GETTING [place]STON CATHETER AND IV WRAPPED AROUND HIM. STRAIGHTENED OUT LINES AND PULLED PT UP IN BED. PLACED ROMEL ALARM ON BED. NO OTHER NEEDS. BED LOW. CALL LIGHT IN REACH.
[2019-11-07 06:32] LABS: BASOPHILS 0 % (0-2); EOSINOPHILS 0 % (0-7); HEMATOCRIT 36.4 % (42.0-54.0); IMMATURE GRANULOCYTES 0.3 % (0-5); LYMPHOCYTES 3.8 % (15-50); MCH 32.1 pg (26.0-34.0); MCV 97.3 fL (80.0-100.0); MEAN PLATELET VOLUME 9.7 fL (7.4-10.4); MONOCYTES 5.2 % (2-11); NEUTROPHILS 90.7 % (40-80); PLATELET COUNT 208 10x3/uL (130-400); RBC 3.74 10x6/uL (4.20-6.10); RDW 13.1 % (11.5-14.5); WBC 11.8 10x3/uL (4.8-10.8)
[2019-11-07 06:35] LABS: ANION GAP 12.8 mmol/L (8-16); CALCIUM 7.6 mg/dL (8.5-10.1); CARBON DIOXIDE 23.5 mmol/L (21.0-32.0); CREATININE - SERUM 1.4 mg/dL (0.6-1.3); POTASSIUM - SERUM 4.3 mmol/L (3.5-5.1)
--- NOTE | 2019-11-07 08:00 | NUR ---
ASSESSMENT PER FLOW SHEET. PT IS WITHOUT DISTRESS.CALL LIGHT IN REACH
[2019-11-07 08:28] VITALS: BP 131/69
--- NOTE | 2019-11-07 13:45 | NUR ---
PT REPORTS LIGHT BROWN LIQUID STOOL. LAURA WATER REUSE PROGRAM MANAGER OR MYSELF HELPED HIM TO BATHROOM. INSTRUCTED PATIENT TO CALL FOR ASSIST.
[2019-11-07 14:07] VITALS: BP 141/84
[2019-11-07 16:19] VITALS: BP 135/71
--- NOTE | 2019-11-07 17:43 | NUR ---
REMAINS WITHOUT NEEDS,WITHOUT CHANGE. CONFUSION AT TIMES. ROMEL MAT REMAINS IN PLACE AND DOOR OPEN.EATING ANOTHER ICE POP. HAS HAD NO NAUSEA. 200 CC OF DRAINAGE IN NGT CANISTER FOR TODAY. PAIN SOMEWHAT CONTROLLED WITH RADIO MECHANIC HELPER. WENT HOME FOR DAY. CONT PLAN OF CARE
[2019-11-07 23:31] VITALS: BP 150/80
[2019-11-08 03:48] VITALS: BP 146/57
[2019-11-08 04:00] VITALS: BP 140/70
--- NOTE | 2019-11-08 05:30 | NUR ---
PT CONFUSED. KEEPS CLIMBING OUT OF BED. SAYS HE HAS TO "PEE". HAVE REORIENTED SEVERAL TIMES AND PUT BACK IN BED. HAVE EXPLAINED HOUSTON CATHETER REPEATEDLY. PT STILL WANTS TO GET UP AND TRY TO VOID. PT PULLED CATHETER SO TIGHT, THERE WAS A LITTLE BLOOD IN HIS URINE THEN CLEARD UP. PT ALSO JUST PULLED OUT NG TUBE. PT STATES HE IS GOING HOME TODAY ANYWAY.
[2019-11-08 06:52] LABS: BASOPHILS 0.1 % (0-2); EOSINOPHILS 0.2 % (0-7); HEMATOCRIT 36.7 % (42.0-54.0); HEMOGLOBIN 12.3 g/dL (13.5-17.5); IMMATURE GRANULOCYTES 0.4 % (0-5); LYMPHOCYTES 5.7 % (15-50); MCH 32.3 pg (26.0-34.0); MCHC 33.5 g/dL (31.0-37.0); MCV 96.3 fL (80.0-100.0); MEAN PLATELET VOLUME 9.8 fL (7.4-10.4); MONOCYTES 3.3 % (2-11); NEUTROPHILS 90.3 % (40-80); PLATELET COUNT 201 10x3/uL (130-400); RBC 3.81 10x6/uL (4.20-6.10); RDW 13.5 % (11.5-14.5); WBC 12.5 10x3/uL (4.8-10.8)
[2019-11-08 07:11] LABS: ANION GAP 14.2 mmol/L (8-16); CALCIUM 8.1 mg/dL (8.5-10.1); CARBON DIOXIDE 21.6 mmol/L (21.0-32.0); CREATININE - SERUM 1.2 mg/dL (0.6-1.3); POTASSIUM - SERUM 3.8 mmol/L (3.5-5.1)
--- NOTE | 2019-11-08 09:00 | NUR ---
ASSESSMENT PER FLOW SHEET. PT IS WITHOUT DISTRESS.CALL LIGHT IN REACH. ROMEL MAT ON AND WORKING. HERE THIS AM.DOOR OPEN
[2019-11-08 09:15] VITALS: BP 100/76
[2019-11-08 12:27] VITALS: BP 103/87
[2019-11-08 17:40] VITALS: BP 154/79
--- NOTE | 2019-11-08 18:44 | NUR ---
STILL CONFUSED. FALL PREVENTION REMAINS IN PLACE. PT IS WITHOUT CHANGE.CONT PLAN OF CARE
[2019-11-09] VITALS (7 sets, daily range): BP systolic 109–144; BP diastolic 49–74
[2019-11-09 04:30] LABS: BASOPHILS 0.1 % (0-2); EOSINOPHILS 0.8 % (0-7); HEMOGLOBIN 11.6 g/dL (13.5-17.5); IMMATURE GRANULOCYTES 0.2 % (0-5); LYMPHOCYTES 5.9 % (15-50); MCH 31.7 pg (26.0-34.0); MCHC 33.1 g/dL (31.0-37.0); MCV 95.6 fL (80.0-100.0); MEAN PLATELET VOLUME 9.8 fL (7.4-10.4); MONOCYTES 3.9 % (2-11); NEUTROPHILS 89.1 % (40-80); PLATELET COUNT 210 10x3/uL (130-400); RBC 3.66 10x6/uL (4.20-6.10); RDW 13.3 % (11.5-14.5); WBC 10.4 10x3/uL (4.8-10.8)
[2019-11-09 04:55] LABS: CALC OSMOLALITY 275 mosm/kg (275-300); CALCIUM 8.3 mg/dL (8.5-10.1); CARBON DIOXIDE 23.8 mmol/L (21.0-32.0); CHLORIDE - SERUM 106 mmol/L (98-107); CREATININE - SERUM 0.9 mg/dL (0.6-1.3); GLUCOSE 74 mg/dL (74-106); POTASSIUM - SERUM 3.5 mmol/L (3.5-5.1); SODIUM 138 mmol/L (136-145); UREA NITROGEN 16 mg/dL (7-18); eGFR NON AFRICAN AMERICAN 86 mL/min (90-120)
--- NOTE | 2019-11-09 08:00 | NUR ---
ASSESSMENT PER FLOW SHEET. PT IS WITHOUT DISTRESS.STILL CONFUSED THIS AM. ROMEL MAT ON AND WORKING. AT BEDSIDE
--- NOTE | 2019-11-09 09:46 | NUR ---
HOUSTON DCD ORDERED WITH 550 CC OF URINE IN BAG
--- NOTE | 2019-11-09 13:59 | NUR ---
REMAINS WITHOUT NEEDS.TOLERATING CLD. SIPS IN SMALL AMOUNTS
--- NOTE | 2019-11-09 15:43 | NUR ---
HAS VOIDED 75CC IN URINAL
--- NOTE | 2019-11-09 19:34 | NUR ---
EVENING ROUNDS COMPLETE. PT LAYING IN BED. NO SIGNS OF DISTRESS. PT IS DISORIENTED TO PLACE AND SITUATION. PT DENIES ANY PAIN OR NEEDS AT THIS TIME. CL IN REACH, BED IN LOWEST POSITION. TEACHING ON IMPORTANCE OF NOT GETTING OUT OF BED. PT VOICED UNDERSTANDING.
[2019-11-10] VITALS: BP 143/81
[2019-11-10 04:00] VITALS: BP 140/72
[2019-11-10 04:24] LABS: BASOPHILS 0.2 % (0-2); EOSINOPHILS 1.7 % (0-7); HEMATOCRIT 32.8 % (42.0-54.0); IMMATURE GRANULOCYTES 0.3 % (0-5); MCH 31.8 pg (26.0-34.0); MCHC 33.5 g/dL (31.0-37.0); MCV 94.8 fL (80.0-100.0); MEAN PLATELET VOLUME 9.5 fL (7.4-10.4); MONOCYTES 4.2 % (2-11); NEUTROPHILS 85.6 % (40-80); PLATELET COUNT 206 10x3/uL (130-400); RBC 3.46 10x6/uL (4.20-6.10); RDW 13.2 % (11.5-14.5); WBC 8.9 10x3/uL (4.8-10.8)
[2019-11-10 04:39] LABS: CALC OSMOLALITY 280 mosm/kg (275-300); CARBON DIOXIDE 25.2 mmol/L (21.0-32.0); CHLORIDE - SERUM 106 mmol/L (98-107); GLUCOSE 98 mg/dL (74-106); POTASSIUM - SERUM 3.3 mmol/L (3.5-5.1); SODIUM 139 mmol/L (136-145); eGFR NON AFRICAN AMERICAN 76 mL/min (90-120)
[2019-11-10 04:47] LABS: UREA NITROGEN 21 mg/dL (7-18)
--- NOTE | 2019-11-10 08:10 | NUR ---
PATIENT RECIEVED FROM PREVIOUS NURSE RESTING IN BED. ALERT BUT CONFUSED. MIDLINE INCISION CLOSED WITH EDGAR. NO DRAINAGE NOTED OR S/S OF INFECTION. PATIENT VOIDING WELL WITH URINAL. CL IN REACH
[2019-11-10 09:10] VITALS: BP 144/78
[2019-11-10 12:52] VITALS: BP 114/63
--- NOTE | 2019-11-10 14:21 | NUR ---
NUTRITION F/U CHART REVIEWED. DIET ADVANCED TO FULL LIQUID WITH BOOST TID. WILL CONTINUE TO MONITOR DIET ADVANCEMENT, PO INTAKE. RD FOLLOWING
[2019-11-10 16:20] VITALS: BP 154/86
--- NOTE | 2019-11-10 19:30 | NUR ---
PT LYING IN BED RESTING WITHOUT DISTRESS, AOX4. IV RIGHT FA INFUSING NS @ 75. MIDLINE INCISION AND LAP SITES CDI. TOLERATING DIET. DENIES NEEDS OR PAIN AT THIS TIME. CL IN REACH, WILL CTM
[2019-11-10 20:00] VITALS: BP 161/55
[2019-11-11] VITALS: BP 141/85
--- NOTE | 2019-11-11 00:10 | NUR ---
PT STATES HE IS HAVING PAIN 12/10 IN LOWER STOMACH AND BACK. HE IS PASSING GAS AND DOES NOT KNOW IF IT IS FROM THE BED OR NEEDING TO USE BATHROOM. GAVE NORCO ORDERED. WILL CTM
--- NOTE | 2019-11-11 00:30 | NUR ---
PT HAD SMALL LOOSE BM. STATES PAIN IS SLIGHTLY BETTER. WILL CTM
[2019-11-11 04:00] VITALS: BP 120/71
[2019-11-11 05:17] LABS: BASOPHILS 0.1 % (0-2); CALC OSMOLALITY 279 mosm/kg (275-300); CALCIUM 8.1 mg/dL (8.5-10.1); CARBON DIOXIDE 27.5 mmol/L (21.0-32.0); CHLORIDE - SERUM 106 mmol/L (98-107); CREATININE - SERUM 0.9 mg/dL (0.6-1.3); EOSINOPHILS 2.7 % (0-7); GLUCOSE 120 mg/dL (74-106); HEMATOCRIT 35.2 % (42.0-54.0); HEMOGLOBIN 11.9 g/dL (13.5-17.5); IMMATURE GRANULOCYTES 0.3 % (0-5); LYMPHOCYTES 7.8 % (15-50); MCH 32.1 pg (26.0-34.0); MCHC 33.8 g/dL (31.0-37.0); MCV 94.9 fL (80.0-100.0); MEAN PLATELET VOLUME 9.6 fL (7.4-10.4); MONOCYTES 7.8 % (2-11); NEUTROPHILS 81.3 % (40-80); PLATELET COUNT 194 10x3/uL (130-400); POTASSIUM - SERUM 3.1 mmol/L (3.5-5.1); RBC 3.71 10x6/uL (4.20-6.10); RDW 13.2 % (11.5-14.5); SODIUM 139 mmol/L (136-145); UREA NITROGEN 16 mg/dL (7-18); WBC 7.4 10x3/uL (4.8-10.8); eGFR NON AFRICAN AMERICAN 86 mL/min (90-120)
--- NOTE | 2019-11-11 08:00 | NUR ---
ASSESSMENT PER FLOW SHEET. PT IS WITHOUT DISTRESS.MONITOR FOR NEEDS.
[2019-11-11 08:09] VITALS: BP 151/81
[2019-11-11] MEDS ORDERED: HYDROCODON-ACE1 EAC7 PO (09:25)
--- NOTE | 2019-11-11 09:26 | OP ---
PATIENT NAME: CHACE ADAN MEDICAL RECORD: [id number] :37 LOCATION:[id number] ADMISSION DATE:11/05/19 SURGEON: JOHNNIE PLUMMER MD DATE OF OPERATION: 11/06/2019 PREOPERATIVE DIAGNOSES: 1. Small-bowel obstruction. 2. Left hydronephrosis. 3. Metastatic colon cancer. POSTOPERATIVE DIAGNOSES: 1. Small-bowel obstruction. 2. Left hydronephrosis. 3. Metastatic colon cancer. PROCEDURE: Laparoscopic to open lysis of adhesions with small bowel resection. SURGEON: Johnnie Plummer MD REPORT OF PROCEDURE: The patient's abdomen was prepped and draped in sterile fashion. A Veress needle was inserted in the left upper quadrant and the abdomen was insufflated. A 5-mm trocar was placed in the right lateral abdomen. With this, we could see the Veress needle and there was no sign of any injury to bowel or surrounding structures. The patient had some adhesions present to the anterior abdominal wall, but overall there were not many adhesions present. As we placed 5-mm trocars in the right upper quadrant and right lower quadrant, we were able to use these to manipulate the tissues. I can see that a lot of these adhesions were actually secondary to mesenteric and abdominal wall metastatic disease from the patient's known history of colon cancer. It is a stage IV and metastatic to the liver. We were able to tease down some of these lesions off the anterior abdominal wall, but there were multiple lesions throughout the abdomen. Some of the more dense lesions were in the left lower quadrant as we were trying to free up these lesions, there was noted a full thickness injury to the patient's small bowel. At this point, we just elected to open up the abdomen. We performed an open midline lower abdominal incision using a 15 blade and electrocautery. As we were entering the abdominal cavity, we could feel metastatic disease in the rectus sheath in the midline. A sample of this was sent off for permanent specimen. Once we entered the abdominal cavity, we were eventually able to free up all of the adhesions which were secondary to metastatic disease. There were metastatic lesions all throughout the patient's pelvis and left lower quadrant. The whole posterior aspect of the abdominal wall was firm with what appeared to be metastatic cancer. Once we got the bowel completely freed up, we could see there were actually 2 areas of bowel injury, so a section about 18 inches long was removed using a 55 blue load SABINO on each end to transect the bowel and then the mesentery was taken down with sequential clamp and tie technique. This section of bowel had at least 10 areas of palpable tumor present throughout it and some causing stenosis of the bowel lumen. We then performed a juqv-xb-riri anastomosis with a 55 blue load SABINO stapler and the enterotomies were closed with a 30 blue load TA stapler. I oversewed the staple line using multiple Lemberted 3-0 silks. As we continued to inspect the bowel, there was noted to be another area of dense nodular metastatic disease towards the distal small bowel as I tried to just peel this open and actually penetrated all the way into the small bowel lumen. This section was only about 1.5-2 cm in length, so the small section of small bowel was transected using a 55 blue load SABINO stapler on each side and the mesentery OPERATIVE REPORT [id number] CHACE ADAN was taken down with sequential clamp and tie technique with 3-0 silks. A ysno-dg-aize anastomosis was performed with a 55 blue load SABINO stapler and the enterotomies were closed with a 30 blue load TA stapler. Again, we oversewed the staple line using Lemberted 3-0 silks. At this point, the bowel appeared to be free of any nodular disease. There was a nodule at the base of the cecum that was not obstructing and there was another near obstructing nodule in the sigmoid colon near a previous anastomotic site. This was tethered down to the lateral abdominal wall. We were able to free this up, but due to the fact the patient had severe hydronephrosis, a stent had been placed preoperatively and I can actually feel the stent underneath this area of metastatic disease. I elected just to leave this alone and not risk injury to the ureter and the patient would have required a colostomy, which he was not consented for and actually was told preoperatively that he would not require. I elected just to leave this alone as there was a lumen present within it and was not obstructing completely. The patient's abdomen was then irrigated out with normal saline and care was taken to assure there was no sign of any bleeding or bile leakage. The NG tube was noted to be in good position in the stomach. At this point, we closed the midline fascia using running #1 loop PDS times 2 and the skin incisions and trocar sites were all closed with shakira. COMPLICATIONS: Are metastatic disease causing small-bowel obstruction and the enterotomies. CONDITION: Stable. ANESTHESIA: General endotracheal. BLOOD LOSS: 100 mL. TRANSINT:[id number] Voice Confirmation ID: [id number] DOCUMENT ID: [id number] JOHNNIE PLUMMER MD at 0926 CC: SHANKAR UP MD [id number] DICTATION DATE: 11/06/19 1243 OFFICE MACHINE EMBOSSOGRAPH OPERATOR: 11/06/19 3869 ADM IN [facility] [address] [place] [address]
--- NOTE | 2019-11-11 09:42 | MORECARE ---
CASE MANAGEMENT DISCHARGE SUMMARY PATIENT: CHACE ADAN ANUPAMA UNIT: [id number] ADM DATE: 11/05/19 AGE: 84 : 37 SEX: M ROOM/BED: [id number].2217 AUTHOR: FREDDIE,DOC PHYSICIAN: REFERRING PHYSICIAN: MARTI PLUMMER MD DATE OF SERVICE: 11/11/19 Discharge Plan Patient Name: CHACE ADAN Facility: [facility]:[place] : 1935 Planned Disposition: Home or Self Care Anticipated Discharge Date: Discharge Date: Expected LOS: Initial Reviewer: [email or web address] Initial Review Date: 11/05/2019 Generated: 11/11/19 10:41 am Comments DCP- Discharge Planning Updated by [email or web address]: Nery Henning on 11/11/19 8:[address] Patient Name: CHACE ADAN Admission Status: Elective Accout number: [id number] Admission Date: 11-05-2019 : 1935 Admission Diagnosis: Attending: MARTI PLUMMER Current LOS: 6 Anticipated DC Date: Planned Disposition: Home or Self Care Primary Insurance: MEDICARE A & B Discharge Planning Comments: CM met with patient to complete initial dc planning assessment. CM educated patient on the CM role and verbal consent given by patient to complete assessment. Patient lives at home with his where he is independent with his care. At discharge patient plans to return home and feels this is a safe discharge. CM discussed availability of home health, rehab services, and medical equipment. Patient denied known discharge needs at this time. IMM served and explained. Signed by . CM will continue to follow and will assist as needed with dc plans/needs. Commodity Buyer: Nery Henning DCPIA - Discharge Planning Initial Assessment Updated by [email or web address]: Nery Henning on 11/11/19 9:39 am * Is the patient Alert and Oriented? Yes * How many steps to enter\exit or inside your home? 0/0 * PCP PULLIG * Pharmacy [facility] * Preadmission Environment Home with Family * ADLs Independent * Equipment None * List name and contact numbers for known caregivers / representatives who currently or will assist patient after discharge: MARY BETH () [phone] * Verbal permission to speak to the caregivers and representatives has been obtained from the patient. N/A * Community resources currently utilized None * Additional services required to return to the preadmission environment? No * Can the patient safely return to the preadmission environment? Yes * Has this patient been hospitalized within the prior 30 days at any hospital? Yes Coverage Notice Reviewer: [email or web address] Aide Henning Notice Issued Date-Time: 11/11/2019 8:35 Notice Type: IM Discharge Notice Notice Delivered To: Patient Relationship to Patient: [employer] Operator Name: Delivery Method: HAND - Hand Delivered Usha Days: Prior Verbal Notification: Recipient Understood Notice: Yes Recipient Signature: Yes Med Rec Note Co-signed by Attending: Coverage Notice Comment: Patient Name: CHACE ADAN Page [phone] at 0942 All edits/amendments must be made on the electronic document DICTATION DATE: 11/11/19940 ENGRAVER PICTURE: DESMOND 11/11/19940 RPT#: [id number] DC DATE: STATUS: ADM IN [facility] [address] [place] [address] END OF REPORT
--- NOTE | 2019-11-11 10:40 | NUR ---
IV DCD WITH CATH TIP INTACT. DISCHARGE INSTRUCTIONS,STATES UNDERSTANDING. IN ROOM HELPING HIM GET DRESSED FOR DC HOME. DRESSING TO MIDLINE ABD INCISION CHANGED ORDERED,ASEPTIC TECH.LIGHT PINK DRAINAGE NOTED.
--- NOTE | 2019-11-11 11:04 | NUR ---
LEFT UNIT VIA WHEELCHAIR FOR TRANSPORT HOME
--- NOTE | 2019-11-11 12:52 | MORECARE ---
CASE MANAGEMENT DISCHARGE SUMMARY PATIENT: CHACE ADAN ANUPAMA UNIT: [id number] ADM DATE: 11/05/19 AGE: 84 : 37 SEX: M ROOM/BED: D.2217 AUTHOR: FREDDIE,DOC PHYSICIAN: REFERRING PHYSICIAN: MARTI PLUMMER MD DATE OF SERVICE: 11/11/19 Discharge Plan Patient Name: CHACE ADAN Facility: [facility]:[place] : 1935 Planned Disposition: Home or Self Care Anticipated Discharge Date: Discharge Date: 11/11/2019 Expected LOS: 0 Initial Reviewer: [id number] Initial Review Date: 11/05/2019 Generated: 11/11/19 1:51 pm Comments DCP- Discharge Planning Updated by [email or web address]: Nery Henning on 11/11/19 8:[address] Patient Name: CHACE ADAN Admission Status: Elective Accout number: [id number] Admission Date: 11-05-2019 : 1935 Admission Diagnosis: Attending: MARTI PLUMMER Current LOS: 6 Anticipated DC Date: Planned Disposition: Home or Self Care Primary Insurance: MEDICARE A & B Discharge Planning Comments: CM met with patient to complete initial dc planning assessment. CM educated patient on the CM role and verbal consent given by patient to complete assessment. Patient lives at home with his where he is independent with his care. At discharge patient plans to return home and feels this is a safe discharge. CM discussed availability of home health, rehab services, and medical equipment. Patient denied known discharge needs at this time. IMM served and explained. Signed by . CM will continue to follow and will assist as needed with dc plans/needs. Enterostomal Nurse: Nery Henning DCPIA - Discharge Planning Initial Assessment Updated by [email or web address]: Nery Henning on 11/11/19 9:39 am * Is the patient Alert and Oriented? Yes * How many steps to enter\exit or inside your home? 0/0 * PCP PULLIG * Pharmacy [facility] * Preadmission Environment Home with Family * ADLs Independent * Equipment None * List name and contact numbers for known caregivers / representatives who currently or will assist patient after discharge: MARY BETH () [phone] * Verbal permission to speak to the caregivers and representatives has been obtained from the patient. N/A * Community resources currently utilized None * Additional services required to return to the preadmission environment? No * Can the patient safely return to the preadmission environment? Yes * Has this patient been hospitalized within the prior 30 days at any hospital? Yes Coverage Notice Reviewer: [email or web address] Aide Henning Notice Issued Date-Time: 11/11/2019 8:35 Notice Type: IM Discharge Notice Notice Delivered To: Patient Relationship to Patient: Asparagus Cutter Name: Delivery Method: HAND - Hand Delivered Usha Days: Prior Verbal Notification: Recipient Understood Notice: Yes Recipient Signature: Yes Med Rec Note Co-signed by Attending: Coverage Notice Comment: Last DP export: 11/11/19 8:42 a Patient Name: CHACE ADAN Page 22525 at 1252 All edits/amendments must be made on the electronic document DICTATION DATE: 11/11/19 1251 FISHERIES MANAGEMENT BIOLOGIST: DESMOND 11/11/19 1251 RPT#: [id number] DC DATE:11/11/19 STATUS: DIS IN [facility] [address] [place] [address] END OF REPORT
== END 2019-11-11 11:05 | disposition home or self-care (01) | DRG 329 ==
LOC: D.CT 12:37 → D.MS 15:08
PROVIDERS: ADMIT Surgery; ATTEND Surgery
PROC: 0T778DZ Dilation of Left Ureter with Intraluminal Device, Via Natural or Artificial Opening Endoscopic (ICD-10-PCS; 2019-11-05)
PROC: 0DB80ZZ Excision of Small Intestine, Open Approach (ICD-10-PCS; principal; 2019-11-06 13:00)
DX: C18.9 Malignant neoplasm of colon, unspecified (principal); E43 Unspecified severe protein-calorie malnutrition; K56.600 Partial intestinal obstruction, unspecified as to cause; N13.1 Hydronephrosis with ureteral stricture, not elsewhere classified; C78.7 Secondary malignant neoplasm of liver and intrahepatic bile duct; M19.90 Unspecified osteoarthritis, unspecified site

== ENCOUNTER → 2019-12-16 18:31 | Outpatient (CLI) | payer MEDICARE, OTHER ==
[2019-11-06 12:25] VITALS: BMI 23.2
[~2019-12-16 18:31] MED LIST changes: +HYDROCODON-ACE1 EAC7 PO; +OXYCODONE HCL E20 MG PO; +OXYCODONE HCL5 M1 PO; +VALIUM5 MG PO
[2019-12-16 20:13] LABS: BILIRUBIN NEGATIVE (NEGATIVE); GLUCOSE NEGATIVE (NEGATIVE); KETONE NEGATIVE (NEGATIVE); NITRITE NEGATIVE (NEGATIVE); UROBILINOGEN NORMAL (NORMAL)
[2019-12-16 20:14] LABS: BACTERIA MANY /hpf (NEGATIVE); RED CELLS - URINE 0-5 /hpf (0-5)
== END | disposition home or self-care (01) ==
LOC: D.LABREF 18:31
PROVIDERS: ATTEND Surgery
DX: N39.0 Urinary tract infection, site not specified (principal)

== ENCOUNTER 2020-01-20 14:47 | Inpatient (IN) | payer MEDICARE, OTHER ==
[~2020-01-20] VITALS: Ht 175.3 cm; Wt 58.2 kg
--- NOTE | 2020-01-20 13:50 | NUR ---
RECEIVED PT FROM ADMISSIONS DOWNSTAIRS. GOT PT COMFORTABLE IN BED. COMPLETED QUICK START AND ADULT ADMISSION HISTORY. PT IS PERMITTED IN THE ROOM FOR A "FEW HOURS" PER ADMIN. SHE IS NOT TO STAY THE NIGHT NOR IS SHE ABLE TO VISIT EVERYDAY.
--- NOTE | 2020-01-20 16:10 | NUR ---
PT RECEIVED THE FIRST DOSE OF OPTIVO YESTERDAY AT [facility], DR. UP.
[2020-01-20 17:29] VITALS: BP 109/48
--- NOTE | 2020-01-20 18:03 | NUR ---
ORDERS RECEIVED. PT IS RESTING COMFORTABLY IN BED. INFORMED RN THAT PT NEEDS INFUSAPORT ACCESSED AND ADMISSION ASSESSMENT COMPLETED. PT IS TO LEAVE BEFORE THE NIGHT IS OVER. PT GOT TRAY DELIVERED TO ROOM. WILL CONTINUE TO MONITOR.
[2020-01-20 20:00] VITALS: BP 97/49
[2020-01-20 20:15] LABS: BASOPHILS 0.2 % (0-2); EOSINOPHILS 0.5 % (0-7); HEMATOCRIT 32.9 % (42.0-54.0); HEMOGLOBIN 10.5 g/dL (13.5-17.5); IMMATURE GRANULOCYTES 0.5 % (0-5); LYMPHOCYTES 16.3 % (15-50); MCH 28.7 pg (26.0-34.0); MCHC 31.9 g/dL (31.0-37.0); MCV 89.9 fL (80.0-100.0); MONOCYTES 10.7 % (2-11); NEUTROPHILS 71.8 % (40-80); RBC 3.66 10x6/uL (4.20-6.10); RDW 14.7 % (11.5-14.5); WBC 6.1 10x3/uL (4.8-10.8)
[2020-01-20 20:23] LABS: APTT 28.1 SECONDS (22.8-39.4); INR 1.1 (0.85-1.17); PLATELET COUNT 443 10x3/uL (130-400); PROTIME 14.1 SECONDS (11.6-15.0)
[2020-01-20 20:29] LABS: ALBUMIN 2.3 g/dL (3.4-5.0); ANION GAP 9.4 mmol/L (8-16); BILIRUBIN - TOTAL 0.51 mg/dL (0.2-1.3); CALCIUM 8.1 mg/dL (8.5-10.1); CARBON DIOXIDE 30.6 mmol/L (21.0-32.0); CREATININE - SERUM 2.4 mg/dL (0.6-1.3); MAGNESIUM - SERUM 2.6 mg/dL (1.8-2.4); PHOSPHOROUS 4.7 mg/dL (2.5-4.9); PROTEIN - SERUM 6.2 g/dL (6.4-8.2)
[2020-01-21] VITALS (7 sets, daily range): BP systolic 119–148; BP diastolic 54–93; BMI 18.9
[2020-01-21 04:28] LABS: BASOPHILS 0.1 % (0-2); EOSINOPHILS 0.7 % (0-7); HEMATOCRIT 31.2 % (42.0-54.0); IMMATURE GRANULOCYTES 0.4 % (0-5); LYMPHOCYTES 16.6 % (15-50); MCH 28.7 pg (26.0-34.0); MCHC 32.1 g/dL (31.0-37.0); MCV 89.7 fL (80.0-100.0); MEAN PLATELET VOLUME 9.3 fL (7.4-10.4); MONOCYTES 14.6 % (2-11); NEUTROPHILS 67.6 % (40-80); PLATELET COUNT 445 10x3/uL (130-400); RBC 3.48 10x6/uL (4.20-6.10); RDW 14.6 % (11.5-14.5); WBC 6.8 10x3/uL (4.8-10.8)
[2020-01-21 04:53] LABS: ALBUMIN 2.3 g/dL (3.4-5.0); BILIRUBIN - TOTAL 0.45 mg/dL (0.2-1.3); CARBON DIOXIDE 26.2 mmol/L (21.0-32.0); CREATININE - SERUM 2.4 mg/dL (0.6-1.3); MAGNESIUM - SERUM 2.6 mg/dL (1.8-2.4); PHOSPHOROUS 5.2 mg/dL (2.5-4.9); POTASSIUM - SERUM 4.2 mmol/L (3.5-5.1); PROTEIN - SERUM 5.6 g/dL (6.4-8.2)
--- NOTE | 2020-01-21 05:02 | NUR ---
2000) ENTERED ROOM WITH [facility] REFUSED TO TAKE ANY MEDS STATES TILL I TALKED TO MY , CALLS TO DESKS STATING MY ASKING FOR HIS MEDS NOBODY WILL HELP HIM.EXPLAINED REFUSE TO TAKE MEDS SAYS MY WILL BE CALLING ME AT 2230 WILL TALK TO HER FIRST BEFORE TAKING.ASK WHEN WILL HIS NURSE BE BACK TO CARE FOR HIM EXPLAINED THE MALE NURSE WITH [facility] IS DR.DWORKINS MCNEILL.STATES HE PROMISED HE'D BE BACK TO TAKE CARE OF HIM.INFUSAPORT ACCESSED VIA MEENA BACA RN.KYA WELL.2300) EDWARD STYLES FROM ICU HERE TO INSERT JOHNNY,DONE KYA WELL RIGHT NARE,PORTABLE X-RAY DONE FOR -JOHNNY PLACEMENT. 0035)PALAK CHEUNG HERE READ WRITTEN RESULTS OF X-RAY. ADVANCED COUPLE INCHES REQUESTED BY SKYE MCNEILL BY EDWARD STYLES. 2ND PLACEMENT X-RAY ORDERED.0100)AWAITING RESULTS. WILL CONTINUE TO MONITOR
--- NOTE | 2020-01-21 08:32 | NUR ---
HE IS RESTING, MORNING MEDICATIONS GIVEN. HE REFUSED THE MEDICATIONS FOR HIS BOWELS. THE CALL [facility] IS WITHIN REACH.
--- NOTE | 2020-01-21 15:20 | NUR ---
Nutrition follow-up: Pt unhappy with TF regimen. Pt wants bolus feeds. Unable to bolus into a Dobhoff tube. Discussed with Dr. Hurt and JENSEN Cuba and agreed to run TF during the day froom 0600 - 1800 @ goal rate of 60 ml/hr. RDN following.
[2020-01-22 04:00] VITALS: BP 122/68
[2020-01-22 05:42] LABS: BASOPHILS 0.5 % (0-2); EOSINOPHILS 1.5 % (0-7); HEMATOCRIT 31.3 % (42.0-54.0); HEMOGLOBIN 9.7 g/dL (13.5-17.5); IMMATURE GRANULOCYTES 0.5 % (0-5); LYMPHOCYTES 15.4 % (15-50); MCH 28.4 pg (26.0-34.0); MCV 91.5 fL (80.0-100.0); MEAN PLATELET VOLUME 8.8 fL (7.4-10.4); MONOCYTES 15.9 % (2-11); NEUTROPHILS 66.2 % (40-80); PLATELET COUNT 452 10x3/uL (130-400); RBC 3.42 10x6/uL (4.20-6.10); RDW 14.9 % (11.5-14.5); WBC 6.6 10x3/uL (4.8-10.8)
[2020-01-22 06:39] LABS: ALBUMIN 2.1 g/dL (3.4-5.0); ANION GAP 11.1 mmol/L (8-16); BILIRUBIN - TOTAL 0.32 mg/dL (0.2-1.3); CALCIUM 8.3 mg/dL (8.5-10.1); CARBON DIOXIDE 27.6 mmol/L (21.0-32.0); CREATININE - SERUM 2.7 mg/dL (0.6-1.3); MAGNESIUM - SERUM 2.4 mg/dL (1.8-2.4); PHOSPHOROUS 4.7 mg/dL (2.5-4.9); POTASSIUM - SERUM 3.7 mmol/L (3.5-5.1); PROTEIN - SERUM 5.8 g/dL (6.4-8.2)
[2020-01-22 08:45] VITALS: BP 129/71
--- NOTE | 2020-01-22 09:09 | NUR ---
HE IS WANTING TO GO HOME WITH HOSPICE. PAIN MED GIVEN.
--- NOTE | 2020-01-22 10:22 | MORECARE ---
CASE MANAGEMENT DISCHARGE SUMMARY PATIENT: CHACE ADAN ANUPAMA UNIT: [id number] ADM DATE: 01/20/20 AGE: 84 : 37 SEX: M ROOM/BED: D.2201 AUTHOR: ANNEL FRAZIER PHYSICIAN: REFERRING PHYSICIAN: RENNY BANKS MD DATE OF SERVICE: 01/22/20 Discharge Plan Patient Name: CHACE ADAN Facility: [facility]:[place] : 1935 Planned Disposition: Home with Hospice Anticipated Discharge Date: Discharge Date: Expected LOS: Initial Reviewer: [email or web address] Initial Review Date: 01/20/2020 Generated: 01/22/20 11:22 am External Providers External Provider: [facility] [place] in Next Contact Date: Service Request Date: Service Type: Resolution: Reviewer: Comments: Patient Name: CHACE ADAN Page [phone] at 1022 All edits/amendments must be made on the electronic document DICTATION DATE: 01/22/20 1022 ACUTE CARE REGISTERED NURSE: DESMOND 01/22/20 1022 RPT#: [id number] DC DATE: STATUS: ADM IN [facility] [address] [place] [address] END OF REPORT
--- NOTE | 2020-01-22 10:30 | MORECARE ---
CASE MANAGEMENT DISCHARGE SUMMARY PATIENT: CHACE ADAN ANUPAMA UNIT: [id number] ADM DATE: 01/20/20 AGE: 84 : 37 SEX: M ROOM/BED: D.2201 AUTHOR: ANNEL FRAZIER PHYSICIAN: REFERRING PHYSICIAN: RENNY BANKS MD DATE OF SERVICE: 01/22/20 Discharge Plan Patient Name: CHACE ADAN Facility: [facility]:[place] : 1935 Planned Disposition: Home with Hospice Anticipated Discharge Date: Discharge Date: Expected LOS: Initial Reviewer: [email or web address] Initial Review Date: 01/20/2020 Generated: 01/22/20 11:29 am Comments DCP- Discharge Planning Updated by [email or web address]: Nery Henning on 01/22/20 9:[address] Patient Name: CHACE ADAN Admission Status: Urgent Accout number: [id number] Admission Date: 01-20-2020 : 1935 Admission Diagnosis: Attending: RENNY BANKS Current LOS: 2 Anticipated DC Date: Planned Disposition: Home with Hospice Primary Insurance: MEDICARE A & B Discharge Planning Comments: SPOKE WITH PATIENT AT LENGTH AND HIS , PATIENT WOULD LIKE TO GO HOME TODAY WITH HOSPICE. HE WOULD LIKE TO USE [facility]. I HAVE SPOKEN WITH FREDRICK AND HAVE STATRED THE PROCESS TO MEET HIS WISHES ON GOING HOME. TYSHAWN WAS SIGNED AND IMM SIGNED. CM TO FOLLOW AND ASSIST Mortgage Advisor: Nery Henning Coverage Notice Reviewer: [id number] Aide Henning Notice Issued Date-Time: 01/22/2020 9:00 Notice Type: IM Discharge Notice Notice Delivered To: Patient Relationship to Patient: Automobile Insurance Claim Examiner Name: Delivery Method: HAND - Hand Delivered Usha Days: Prior Verbal Notification: Recipient Understood Notice: Yes Recipient Signature: Yes Med Rec Note Co-signed by Attending: Coverage Notice Comment: Reviewer: [id number] Aide Henning Notice Issued Date-Time: 01/22/2020 9:00 Notice Type: Patient Choice Letter Notice Delivered To: Patient Relationship to Patient: Automobile Insurance Claim Examiner Name: Delivery Method: HAND - Hand Delivered Usha Days: Prior Verbal Notification: Recipient Understood Notice: Yes Recipient Signature: Yes Med Rec Note Co-signed by Attending: Coverage Notice Comment: [facility] Last DP export: 01/22/20 9:22 am Patient Name: CHACE ADAN Page 53600 at 1030 All edits/amendments must be made on the electronic document DICTATION DATE: 01/22/20 1029 THREAD DRESSER: DESMOND 01/22/20 1029 RPT#: [id number] DC DATE: STATUS: ADM IN [facility] [address] [place] [address] END OF REPORT
[2020-01-22 14:02] VITALS: BP 127/71; Ht 175.3 cm; Wt 58.2 kg
--- NOTE | 2020-01-22 14:15 | NUR ---
FEEDING TUBE REMOVED. INFUSA PORT DEACCESSED. TAKEN OUT BY WHEELCHAIR. WITH HIM.
--- NOTE | 2020-01-22 17:23 | MORECARE ---
CASE MANAGEMENT DISCHARGE SUMMARY PATIENT: CHACE ADAN ANUPAMA UNIT: [id number] ADM DATE: 01/20/20 AGE: 84 : 37 SEX: M ROOM/BED: D.2201 AUTHOR: ANNEL FRAZIER PHYSICIAN: REFERRING PHYSICIAN: RENNY BANKS MD DATE OF SERVICE: 01/22/20 Discharge Plan Patient Name: CHACE ADAN Facility: [facility]:[place] : 1935 Planned Disposition: Home with Hospice Anticipated Discharge Date: Discharge Date: 01/22/2020 Expected LOS: Initial Reviewer: [email or web address] Initial Review Date: 01/20/2020 Generated: 01/22/20 6:23 pm Comments DCP- Discharge Planning Updated by [id number]: Nery Henning on 01/22/20 9:[address] Patient Name: CHACE ADAN Admission Status: Urgent Accout number: [id number] Admission Date: 01-20-2020 : 1935 Admission Diagnosis: Attending: RENNY BANKS Current LOS: 2 Anticipated DC Date: Planned Disposition: Home with Hospice Primary Insurance: MEDICARE A & B Discharge Planning Comments: SPOKE WITH PATIENT AT LENGTH AND HIS , PATIENT WOULD LIKE TO GO HOME TODAY WITH HOSPICE. HE WOULD LIKE TO USE [facility]. I HAVE SPOKEN WITH FREDRICK AND HAVE STATRED THE PROCESS TO MEET HIS WISHES ON GOING HOME. TYSHAWN WAS SIGNED AND IMM SIGNED. CM TO FOLLOW AND ASSIST Securities Counselor: Nery Henning Coverage Notice Reviewer: [email or web address] Aide Henning Notice Issued Date-Time: 01/22/2020 9:00 Notice Type: IM Discharge Notice Notice Delivered To: Patient Relationship to Patient: Laundry Or Dry Cleaners Counter Clerk Name: Delivery Method: HAND - Hand Delivered Usha Days: Prior Verbal Notification: Recipient Understood Notice: Yes Recipient Signature: Yes Med Rec Note Co-signed by Attending: Coverage Notice Comment: Reviewer: [id number] Aide Henning Notice Issued Date-Time: 01/22/2020 9:00 Notice Type: Patient Choice Letter Notice Delivered To: Patient Relationship to Patient: Laundry Or Dry Cleaners Counter Clerk Name: Delivery Method: HAND - Hand Delivered Usha Days: Prior Verbal Notification: Recipient Understood Notice: Yes Recipient Signature: Yes Med Rec Note Co-signed by Attending: Coverage Notice Comment: [facility] Last DP export: 01/22/20 9:30 am Patient Name: CHACE ADAN Page [phone] at 1723 All edits/amendments must be made on the electronic document DICTATION DATE: 01/22/201722 SHANK PIECE TACKER: DESMOND 01/22/201722 RPT#: [id number] DC DATE:01/22/20 STATUS: DIS IN [facility] [address] [place] [address] END OF REPORT
== END 2020-01-22 14:19 | disposition home health service (06) | DRG 947 ==
LOC: D.SDCHOLD 14:47 → D.MS 14:47 → OBSVTIME 14:51 → D.MS 15:04
PROVIDERS: ADMIT Internal Medicine Nephrology; ATTEND Internal Medicine Nephrology
DX: G89.3 Neoplasm related pain (acute) (chronic) (principal); E43 Unspecified severe protein-calorie malnutrition; C18.9 Malignant neoplasm of colon, unspecified; C78.7 Secondary malignant neoplasm of liver and intrahepatic bile duct; E87.1 Hypo-osmolality and hyponatremia; Z68.23 Body mass index [BMI] 23.0-23.9, adult; R62.7 Adult failure to thrive; K59.00 Constipation, unspecified; N18.9 Chronic kidney disease, unspecified

== ENCOUNTER 2020-02-04 12:56 | Inpatient (IN) | payer OTHER ==
[~2020-02-04] VITALS: Ht 175.3 cm; Wt 54.4 kg
--- NOTE | 2020-02-04 14:30 | NUR ---
RECIEVED PT. PT HAS A L HAND PIV THAT IS SL. PT IS VOMITTING BLACK COFFEE GROUND EMESIS. AT BEDSIDE. BED LOCKED AND IN LOWEST POSITION. AWAITING ORDERS TO BE PUT IN COMPUTER. WILL CTM
[2020-02-04 19:10] VITALS: BMI 17.7
[2020-02-04 20:00] VITALS: BP 155/94
--- NOTE | 2020-02-04 23:50 | NUR ---
@ 2320 PT SAT UP ON SIDE OF BED, APPEARS RESTLESS. ASKED PT IF HE WAS HURTING, TO WHICH HE REPLIED, "UH HUH," WHILE NODDING HIS HEAD. PRN THROAT SPRAY AND BOLUS PAIN MEDICATION GIVEN. RETURNED TO ROOM AFTER 10MINUTES TO REASSESS, PTs RESTLESSNESS IS INCREASING. HE PULLED OUT HIS NGT. SUCTION CANISTER EMPTY SINCE START OF SHIFT. @ 2337 PRN ANXIETY MEDICATION GIVEN SOME CONTENTS FROM NG TUBING COLLECTED IN PTs MOUTH. SUCTION SET AT BEDSIDE, ORAL CARE PROVIDED. NO N/V NOTED. PT APPEARS TO BE SETTLING DOWN.
--- NOTE | 2020-02-05 02:00 | NUR ---
SPOKE WITH [facility] NURSE, GLORIA. INFORMED HER PT REMOVED NGT, BUT WAS NOT DRAINAGING ANYTHING. SUCTION AT BEDSIDE, NO N/V NOTED, PT NOT EATING/DRINKING, AND PT CURRENTLY APPEARED TO BE RESTING COMFORTABLY. - HOSPICE NURSE ADVISED ME TO NOT REINSERT NGT WHILE HE IS NOT IN DISTRESS OR N/V. WILL CONTINUE TO MONITOR.
--- NOTE | 2020-02-05 02:24 | NUR ---
I have reviewed this patient and I concur with the Shift Assessment completed by the Licensed Practical Nurse today this shift.
[2020-02-05 08:26] VITALS: BP 134/79
--- NOTE | 2020-02-05 11:30 | NUR ---
ADMINISTERED PRN ATIVAN FOR RESTLESSNESS. IS AT PT BEDSIDE. PT IS BREATHING SHALLOW, UNEVEN AND VERY LABORED.
--- NOTE | 2020-02-05 12:36 | NUR ---
PT RESTING IN BED, SUPINE. BREATHING UNEVEN AND LABORED. PT IS AT BEDSIDE. COMFORTED HER TO THE BEST OF MY ABILITY. PT IS BEING KEPT COMFORTABLE. WILL CONTINUE TO MONITOR.
[2020-02-05 12:41] VITALS: Ht 175.3 cm; Wt 54.4 kg
--- NOTE | 2020-02-05 12:53 | NUR ---
HUNG NEW BAG OF ZOFRAN. AT BEDSIDE. DENIES ANY NEEDS. WILL CONTINUE TO MONITOR.
--- NOTE | 2020-02-05 14:16 | NUR ---
PT INCLINED IN BED. BREATHING UNEVEN AND LABORED. AT BEDSIDE. KEEPING PT COMFORTABLE POSSIBLE.
--- NOTE | 2020-02-05 15:03 | NUR ---
PUT NEW COMMERCIAL FINANCE MANAGER MORPHINE. AT BEDSIDE. DENIES ANY NEEDS. WILL CONTINUE TO MONITOR.
--- NOTE | 2020-02-05 18:12 | NUR ---
REMAINS AT BEDSIDE. PATIENT REMAINS WITHOUT SIGNS OF DISTRESS
--- NOTE | 2020-02-05 18:47 | NUR ---
ADMINISTERED PRN ATIVAN DUE TO PT BEING RESTLESS. AT BEDSIDE. DENIES ANY NEEDS. WILL CONTINUE TO MONITOR.
[2020-02-05 20:00] VITALS: BP 126/73
--- NOTE | 2020-02-06 06:38 | NUR ---
I have reviewed this patient and I concur with the Shift Assessment completed by the Licensed Practical Nurse today this shift.
--- NOTE | 2020-02-06 07:23 | NUR ---
PATIENT WITHOUT RESPIRATIONS,CODE CALLED. CALL TO TO VERIFY CODE STATUS.SHE WANTS 02 ONLY NO OTHER MEASURES TO BE TAKEN. SHE STATES PATIENTS AND HER WISHES ARE DNR.CALL WITNESSED BY KARYNA CAMACHO LPN.CLIFFORD IVAN FOUND ON CHART FOR [facility],DNR.
--- NOTE | 2020-02-06 07:24 | NUR ---
DURING REPORT PT TOOK HIS LASAT BREATH, PT IS NOT A DNR, CODE CALLED ON PT, CALLED AND TEAM WAS GIVEN VERBAL TO ONLY GIVE OXYGEN UNTIL SHE ARRIVES, PT HAS PASSED AT 0720THIS MORNING AWAITNG FOR SPOUSE TO ARRIVE. BEN MCNEILL NOTIFIED AND WAS ORDERED TO CALL HOSPICE NURSE
--- NOTE | 2020-02-06 10:57 | NUR ---
[facility], ASSISTED QUANTITATIVE ANALYST AND SPOUSE WITH DRESSING AND GROOMING PATIENT BEFORE HOME ARRIVED. NO OTHER NEEDS VOICED BY SPOUSE.
== END 2020-02-06 10:59 | disposition other institution (70) | DRG 951 ==
LOC: D.MS 12:56 → D.SDCHOLD 02-05 14:27 → D.MS 02-05 14:28
PROVIDERS: ADMIT Legal Medicine; ATTEND Legal Medicine
DX: Z51.5 Encounter for palliative care (principal)